=== PATIENT | female | born 1930 | race Caucasian/White ===

== ENCOUNTER 2017-09-07 13:25 | Observation (INO) | payer MEDICARE ==
[2017-09-07] VITALS (8 sets, daily range): BP systolic 131–194; BP diastolic 78–96; PULSE 90–120; RESP 15–20; TEMP 96.5–98.7; O2SAT 92–99
[~2017-09-07 13:25] MED LIST: ALBU.5I NEB; ALLO100T PO; IPRA0.02 NEB; LEVE500 PO; LORTA5 PO; NIFE1TAB86 PO; PRIM50TA PO
--- NOTE | 2017-09-07 14:59 | PD ---
HPI Chief Complaint: General Weakness Time Seen by Provider: 14:38 Travel History International Travel<30 days: No Contact w/Intl Traveler<30days: No Traveled to known affect area: No History of Present Illness HPI This is an 87-year-old female who presents to the department with weakness for 3 days and pain in her left leg, constant, severe, preventing her from walking. Patient reports that she fell 3 times 3 days ago, and she and her her left leg and left foot. She hasn't been able to walk much since. She's been mostly in bed and occasionally she gets up to use the bathroom. Her children have been leaving her water and bananas and that's when she's been eating and drinking. She says she feels very unsteady when she is on her feet. She did hit her head when she fell. PFSH Past Medical History Anemia: Yes (APLASTIC ANEMIA) Arthritis: Yes Asthma: No Atrial Fibrillation: Yes Blood Disorders: No Anxiety: No Depression: No Heart Rhythm Problems: Yes ("RACING HEART BEAT") Cancer: No Cardiovascular Problems: Yes High Cholesterol: No Chest Pain: No Congestive Heart Failure: No COPD: No Cerebrovascular Accident: Yes Diabetes: No Diminished Hearing: No Endocrine: No Gastrointestinal Disorders: Yes GERD: Yes Gout: Yes Genitourinary: Yes (KIDNEY DISEASE,UNABLE TO CATH PT.MARSH HITS OBSTRUCTION) Headaches: No Hiatal Hernia: No Hypertension: Yes Immune Disorder: No Implanted Vascular Access Dvce: No Kidney Stones: No Musculoskeletal: Yes (HX OF OSTEOMYELITIS) Neurologic: Yes Psychiatric: No Reproductive: No Respiratory: Yes (HX OF FREQUENT BRONCHITIS) Immunizations Current: Yes Migraines: No Renal Failure: Yes Seizures: Yes (32 years ago) Sickle Cell Disease: No Sleep Apnea: No Thyroid Disease: No Ulcer: Yes Menopausal: Yes Dilation and Curettage (D&C): Yes Past Surgical History Abdominal Surgery: Yes (APPY) Appendectomy: Yes Cardiac Surgery: No Cholecystectomy: Yes Ear Surgery: No Endocrine Surgery: No Eye Surgery: No Genitourinary Surgery: No Gynecologic Surgery: Yes (D&C) Neurologic Surgery: No Oral Surgery: No Thoracic Surgery: No Other Surgery: Yes Social History Alcohol Use: No Tobacco Use: No Substance Use: No Allergies-Medications (Allergen,Severity, Reaction): Coded Allergies: aspirin (Unverified Allergy, Severe, Anemia, 07/05/17) penicillin G (Unverified Allergy, Unknown, ALLERGY FROM A YOUNG AGE/ UNKNOWN REACTION, 07/05/17) Reported Meds & Prescriptions Reported Meds & Active Scripts Active Nifedipine Er (Nifedipine) 60 Mg Tabcr 60 Mg PO Q12 Atrovent Ud 0.02% (0.5 Mg/2.5 Ml) (Ipratropium [place]) 0.5 Mg/2.5 Ml Nebu 0.5 Mg NEB Q6HR NEB 30 Days use with albuterol nebule Proventil Conc Ud 0.5% (2.5 Mg/0.5 Ml) (Albuterol Sulfate) 2.5 Mg/0.5 Ml Inha 2.5 Mg NEB Q6HR NEB 30 Days use with atrovent Keppra (Levetriacetam) 500 Mg Tab 500 Mg PO Q12 Reported Hydrocodone/Acetaminophen 5 mg/325 mg 1 Tab 1 Tab PO Q6H PRN Allopurinol 100 Mg Tab 300 Mg PO DAILY Mysoline (Primidone) 50 Mg Tab 250 Mg PO DAILY Review of Systems Except as stated in HPI: all other systems reviewed are Neg Physical Exam Narrative GENERAL: Frail elderly female in no acute distress. SKIN: Pale, ecchymoses over the dorsal aspect of the left foot. HEAD: Atraumatic. Normocephalic. EYES: Pupils equal and round. No injection or drainage. Pale sclera. ENT: Moist mucous membranes NECK: Trachea midline. CARDIOVASCULAR: Regular rate and rhythm. No murmur appreciated. RESPIRATORY: Clear to auscultation. Breath sounds equal bilaterally. GASTROINTESTINAL: Abdomen soft, non-tender, nondistended. MUSCULOSKELETAL: Tender to palpation over the dorsal aspect of the left foot, over the lateral malleolus of the left ankle, over the proximal tibia and over the knee with pain with flexion of the left knee with no effusion. No pain with range of motion of the left or right hips. NEUROLOGICAL: Awake and alert. No obvious cranial nerve deficits. Moving all extremities. PSYCHIATRIC: Appropriate mood and affect; insight and judgment normal. Data Data Last Documented VS Vital Signs Date Time Temp Pulse Resp B/P (MAP) Pulse Ox O2 Delivery O2 Flow Rate FiO2 09/07/17 13:32 98.7 120 20 146/93 (110) Orders Orders Electrocardiogram (09/07/17 14:46) Complete Blood Count With Diff (09/07/17 14:46) Comprehensive Metabolic Panel (09/07/17 14:46) Prothrombin Time / Inr (Pt) (09/07/17 14:46) Act Partial Throm Time (Ptt) (09/07/17 14:46) Troponin I (09/07/17 14:46) Urinalysis - C+S If Indicated (09/07/17 14:46) Ct Brain W/O Iv Contrast(Rout) (09/07/17 14:46) Blood Glucose (09/07/17 14:46) Ecg Monitoring (09/07/17 14:46) Iv Access Insert/Monitor (09/07/17 14:46) Oximetry (09/07/17 14:46) Sodium Chloride 0.9% Flush (Ns Flush) (09/07/17 15:00) Creatine Kinase (Cpk) (09/07/17 14:46) Foot, Complete ([id number]) (09/07/17 ) Ankle, Complete ([id number]) (09/07/17 ) Tibia/Fibula (Ap/Lat) (09/07/17 ) Knee, Ltd (1 Or 2vws) (09/07/17 ) Tramadol (Ultram) (09/07/17 15:00) Cath For Specimen (09/07/17 14:46) MDM Medical Decision Making Medical Screen Exam Complete: Yes Emergency Medical Condition: Yes Differential Diagnosis Intracranial hemorrhage, metatarsal fracture, contusion, rhabdomyolysis, dehydration, anemia, urinary tract infection Narrative Course This is an 87-year-old female who presents to the emergency department with generalized weakness ever since she had multiple falls 3 days ago as well as pain in her left lower extremity. Labs will be obtained, urinalysis will be obtained, CT of the head and x-rays of the lower extremity will be obtained. Disposition will be made by oncoming provider. Vannessa Watson MD Sep 07, 2017 14:59
[2017-09-07] MEDS ORDERED: traMADol HCL 50 MG TAB PO ONE (15:00)
[2017-09-07] MEDS ORDERED: SODIUM CHLORIDE 0.9% FLUSH 5 ML FLUSH IV FLUSH PRN (15:00)
--- NOTE | 2017-09-07 15:32 | RADRPT ---
EXAM DATE/TIME: 09/07/2017 14:56 [facility] COMPARISON: No previous studies available for comparison. INDICATIONS : FELL TUESDAY. MEDICAL HISTORY : None. SURGICAL HISTORY : None. ENCOUNTER: Initial ACUITY: 3 days PAIN SCORE: 10/10 LOCATION: Left lateral side of foot FINDINGS: 3 views of the left foot show considerable overlap involving the phalanges secondary to flexion and e xtension. Concern for dislocation of the first metatarsal phalangeal joint. Diffuse osteopenia. No fr actures observed. Osteoarthritis involving the first metatarsophalangeal joint. Atherosclerotic calci fications noted. CONCLUSION: 1. Limited study of the phalanges secondary to overlap. 2. Concern for possible dislocation at the first metatarsophalangeal joint. The concern is the proxim al phalanx is along the dorsum of the metatarsal. Gonzalo Arias Jr., MD on September 07, 2017 at 15:27 Board Certified Radiologist. This report was verified electronically.
--- NOTE | 2017-09-07 15:33 | RADRPT ---
EXAM DATE/TIME: 09/07/2017 14:56 [facility] COMPARISON: No previous studies available for comparison. INDICATIONS : Fell 3 times on tuesday. MEDICAL HISTORY : None. SURGICAL HISTORY : None. ENCOUNTER: Initial ACUITY: 3 days PAIN SCORE: 10/10 LOCATION: Left lateral side of foot FINDINGS: Three view exam was performed of the left ankle. The bony structures are in normal alignment. No ev idence of fracture, dislocation, or soft tissue swelling. The ankle mortise is intact. No radiopaqu e foreign bodies are seen. Bony mineralization is reduced. CONCLUSION: Osteopenia. No acute abnormality. Gonzalo Arias Jr., MD on September 07, 2017 at 15:30 Board Certified Radiologist. This report was verified electronically.
--- NOTE | 2017-09-07 15:33 | RADRPT ---
EXAM DATE/TIME: 09/07/2017 14:56 [facility] COMPARISON: No previous studies available for comparison. INDICATIONS : fell tuesday. MEDICAL HISTORY : None. SURGICAL HISTORY : None. ENCOUNTER: Initial ACUITY: 3 days PAIN SCORE: 10/10 LOCATION: Left distal tib fib FINDINGS: Two view examination of the left tibia demonstrates no evidence of fracture or dislocation. Bony min eralization is reduced. The soft tissue structures are intact. CONCLUSION: 1. Osteopenia. 2. No acute abnormality. Gonzalo Arias Jr., MD on September 07, 2017 at 15:31 Board Certified Radiologist. This report was verified electronically.
--- NOTE | 2017-09-07 15:34 | RADRPT ---
EXAM DATE/TIME: 09/07/2017 14:56 [facility] COMPARISON: No previous studies available for comparison. INDICATIONS : Fell tuesday MEDICAL HISTORY : None. SURGICAL HISTORY : None. ENCOUNTER: Initial ACUITY: 3 days PAIN SCORE: 3/10 LOCATION: Left knee FINDINGS: Two view examination of the left knee demonstrates no evidence of fracture or dislocation. Bony mine ralization is reduced. The suprapatellar soft tissues have a normal configuration. CONCLUSION: 1. No acute abnormality. 2. Osteopenia. Gonzalo Arias Jr., MD on September 07, 2017 at 15:32 Board Certified Radiologist. This report was verified electronically.
--- NOTE | 2017-09-07 15:56 | RADRPT ---
EXAM DATE/TIME: 09/07/2017 15:14 [facility] COMPARISON: CT BRAIN W/O CONTRAST, April 20, 2015, 14:41. INDICATIONS : Altered mental status. Fall. RADIATION DOSE: 61.27 CTDIvol (mGy) ; Patient motion MEDICAL HISTORY : Cerebrovascular disease. Hypertension. SURGICAL HISTORY : None. ENCOUNTER: Initial ACUITY: 1 day PAIN SCALE: 0/10 LOCATION: cranial TECHNIQUE: Multiple contiguous axial images were obtained of the head. Using automated exposure control and adj ustment of the mA and/or kV according to patient size, radiation dose was kept as low as reasonably a chievable to obtain optimal diagnostic quality images. DICOM format image data is available electro nically for review and comparison. FINDINGS: CEREBRUM: The ventricles are normal for age. Periventricular areas of diminished attenuation are characteristi c of moderately severe small vessel ischemic demyelination. No evidence of midline shift, mass lesion , hemorrhage or acute infarction. No extra-axial fluid collections are seen. POSTERIOR FOSSA: The cerebellum and brainstem are intact. The 4th ventricle is midline. The cerebellopontine angle i s unremarkable. EXTRACRANIAL: The visualized portion of the orbits is intact. SKULL: The calvaria is intact. No evidence of skull fracture. CONCLUSION: 1. 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 2. Nothing acute. Gaurav Arevalo MD on September 07, 2017 at 15:53 Board Certified Radiologist. This report was verified electronically.
[2017-09-07 15:57] LABS: BLOOD, URINE MOD (NEG); GLUCOSE,URINE NEG (NEG); KETONE, URINE 15 mg/dL (NEG); NITRITE,URINE NEG (NEG)
[2017-09-07 16:06] LABS: CHLORIDE 108 MEQ/L (98-107); POTASSIUM 5.2 MEQ/L (3.5-5.1); SODIUM (NA) 139 MEQ/L (136-145)
[2017-09-07 16:09] LABS: APTT (PATIENT) 25.8 SEC (24.3-30.1); PROTHROMBIN TIME - PATIENT 11.2 SEC (9.8-11.6)
[2017-09-07 16:10] LABS: ANION GAP 15 MEQ/L (5-15); BICARBONATE 16.3 MEQ/L (21.0-32.0); BLOOD UREA NITROGEN 18 MG/DL (7-18)
[2017-09-07 16:11] LABS: METHOD OF COLLECTION CATH; URINE COLOR YELLOW (YELLW/STRAW)
[2017-09-07 16:12] LABS: RBC, URINE 0-3 /hpf (0-3); SQUAMOUS EPITHELIAL CELL URINE 0-5 /hpf (0-5)
[2017-09-07 16:13] LABS: ALT (GPT) 15 U/L (10-53); AST (GOT) 21 U/L (15-37); GLOMERULAR FILTRATION RATE 52 ML/MIN (>89)
[2017-09-07 16:13] LABS: COMMENT (UR) CULT NOT INDICATED; CULTURE IF INDICATED CULT NOT INDICATED
[2017-09-07 16:15] LABS: TOTAL BILIRUBIN ADULT 0.4 MG/DL (0.2-1.0)
[2017-09-07 16:16] LABS: ALKALINE PHOSPHATASE 111 U/L (45-117)
[2017-09-07 16:19] LABS: CREATINE KINASE 49 U/L (26-192)
[2017-09-07 16:24] LABS: AUTOMATED NEUTROPHIL # 5.1 TH/MM3 (1.8-7.7); BASOPHIL % 0.1 % (0.0-2.0); EOSINOPHIL # 0.4 TH/MM3 (0-0.4); EOSINOPHIL % 6.5 % (0.0-4.0); HEMATOCRIT 30.4 % (35.0-46.0); HEMO FLAGS DIFF FINAL; LYMPH % 12.9 % (9.0-44.0); LYMPHOCYTE # 0.9 TH/MM3 (1.0-4.8); MEAN CORPUSCULAR HEMOGLOBIN 34.5 PG (27.0-34.0); MEAN CORPUSCULAR HGB CONC 32.8 % (32.0-36.0); NEUT % 73.5 % (16.0-70.0); PLATELET COUNT 220 TH/MM3 (150-450); RED BLOOD COUNT 2.89 MIL/MM3 (4.00-5.30); RED CELL DISTRIBUTION WIDTH 15.7 % (11.6-17.2); WHITE BLOOD COUNT 6.9 TH/MM3 (4.0-11.0)
--- NOTE | 2017-09-07 18:08 | PD ---
Physical Exam Narrative Patient was seen by ED physician and signed out to me. Data Data Last Documented VS Vital Signs Date Time Temp Pulse Resp B/P (MAP) Pulse Ox O2 Delivery O2 Flow Rate FiO2 09/07/17 19:08 16 09/07/17 19:00 90 97 09/07/17 19:00 168/85 (112) Room Air 09/07/17 13:32 98.7 Orders Orders Electrocardiogram (09/07/17 14:46) Complete Blood Count With Diff (09/07/17 14:46) Comprehensive Metabolic Panel (09/07/17 14:46) Prothrombin Time / Inr (Pt) (09/07/17 14:46) Act Partial Throm Time (Ptt) (09/07/17 14:46) Troponin I (09/07/17 14:46) Urinalysis - C+S If Indicated (09/07/17 14:46) Ct Brain W/O Iv Contrast(Rout) (09/07/17 14:46) Blood Glucose (09/07/17 14:46) Ecg Monitoring (09/07/17 14:46) Iv Access Insert/Monitor (09/07/17 14:46) Oximetry (09/07/17 14:46) Sodium Chloride 0.9% Flush (Ns Flush) (09/07/17 15:00) Creatine Kinase (Cpk) (09/07/17 14:46) Foot, Complete (Fvm5mhs) (09/07/17 ) Ankle, Complete (Cnq7nhm) (09/07/17 ) Tibia/Fibula (Ap/Lat) (09/07/17 ) Knee, Ltd (1 Or 2vws) (09/07/17 ) Tramadol (Ultram) (09/07/17 15:00) Cath For Specimen (09/07/17 14:46) Lidocaine 1% Inj (50 Ml) (Xylocaine 1% I (09/07/17 18:45) Admit Order (Ed Use Only) (09/07/17 19:09) Labs Laboratory Tests Test 09/07/17 15:30 09/07/17 15:42 White Blood Count 6.9 TH/MM3 Red Blood Count 2.89 MIL/MM3 Hemoglobin 10.0 GM/DL Hematocrit 30.4 % Mean Corpuscular Volume 105.0 FL Mean Corpuscular Hemoglobin 34.5 PG Mean Corpuscular Hemoglobin Concent 32.8 % Red Cell Distribution Width 15.7 % Platelet Count 220 TH/MM3 Mean Platelet Volume 8.3 FL Neutrophils (%) (Auto) 73.5 % Lymphocytes (%) (Auto) 12.9 % Monocytes (%) (Auto) 7.0 % Eosinophils (%) (Auto) 6.5 % Basophils (%) (Auto) 0.1 % Neutrophils # (Auto) 5.1 TH/MM3 Lymphocytes # (Auto) 0.9 TH/MM3 Monocytes # (Auto) 0.5 TH/MM3 Eosinophils # (Auto) 0.4 TH/MM3 Basophils # (Auto) 0.0 TH/MM3 CBC Comment DIFF FINAL Differential Comment Prothrombin Time 11.2 SEC Prothromb Time International Ratio 1.0 RATIO Activated Partial Thromboplast Time 25.8 SEC Blood Urea Nitrogen 18 MG/DL Creatinine 1.00 MG/DL Random Glucose 71 MG/DL Total Protein 7.0 GM/DL Albumin 3.3 GM/DL Calcium Level 10.3 MG/DL Alkaline Phosphatase 111 U/L Aspartate Amino Transf (AST/SGOT) 21 U/L Alanine Aminotransferase (ALT/SGPT) 15 U/L Total Bilirubin 0.4 MG/DL Sodium Level 139 MEQ/L Potassium Level 5.2 MEQ/L Chloride Level 108 MEQ/L Carbon Dioxide Level 16.3 MEQ/L Anion Gap 15 MEQ/L Estimat Glomerular Filtration Rate 52 ML/MIN Total Creatine Kinase 49 U/L Troponin I LESS THAN 0.02 NG/ML Urine Collection Type CATH Urine Color YELLOW Urine Turbidity SLIGHT Urine pH 6.0 Urine Specific [place] 1.015 Urine Protein 100 mg/dL Urine Glucose (UA) NEG mg/dL Urine Ketones 15 mg/dL Urine Occult Blood MOD Urine Nitrite NEG Urine Bilirubin NEG Urine Leukocyte Esterase TRACE Urine RBC 0-3 /hpf Urine WBC 3-5 /hpf Urine Squamous Epithelial Cells 0-5 /hpf Urine Amorphous Sediment FEW Microscopic Urinalysis Comment CULT NOT INDICATED MDM Supervised Visit with LUTHER: No Interpretation(s) Last Impressions Head CT 09/07/17 1446 Signed Impressions: Service Date/Time: Thursday, September 07, 2017 15:14 - CONCLUSION: 1. 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 2. Nothing acute. Gaurav Arevalo MD Tibia/Fibula X-Ray 09/07/17 0000 Signed Impressions: Service Date/Time: Thursday, September 07, 2017 14:56 - CONCLUSION: 1. Osteopenia. 2. No acute abnormality. Gonzalo Arias Jr., MD Knee X-Ray 09/07/17 0000 Signed Impressions: Service Date/Time: Thursday, September 07, 2017 14:56 - CONCLUSION: 1. No acute abnormality. 2. Osteopenia. Gonzalo Arias Jr., MD Foot X-Ray 09/07/17 0000 Signed Impressions: Service Date/Time: Thursday, September 07, 2017 14:56 - CONCLUSION: 1. Limited study of the phalanges secondary to overlap. 2. Concern for possible dislocation at the first metatarsophalangeal joint. The concern is the proximal phalanx is along the dorsum of the metatarsal. Gonzalo Arias Jr., MD Ankle X-Ray 09/07/17 0000 Signed Impressions: Service Date/Time: Thursday, September 07, 2017 14:56 - CONCLUSION: Osteopenia. No acute abnormality. Gonzalo Arias Jr., MD 1806 p.m. CBC with WBC 6.9. Hemoglobin 10.0 hematocrit 30.4. MCV 105.0. 73 neutrophil. Potassium 5.2. Chloride 108. Bicarbonate exceeding 0.3. Glucose 71. Calcium 10.3. Cardiac enzymes are normal. UA is negative. Narrative Course Unable to reduce the left great toe dislocation. Podiatry consultation obtained. Acute versus chronic dislocation left great toe. Procedures Procedure Narrative 1% lidocaine digital block left great toe. Traction countertraction with attempts to reduce left great toe without much success. Podiatry consultation initiated. Diagnosis Primary Impression: Generalized weakness Additional Impressions: Dislocation of great toe, left, closed Qualified Codes: S93.105A - Unspecified dislocation of left toe(s), initial encounter Multiple contusions Chronic kidney disease, stage 3 Scripts Unable to Obtain Active Prescriptions or Reported Meds Adrian Earl MD Sep 07, 2017 18:08
[2017-09-07] MEDS ORDERED: LIDOCAINE HCL 1% 50 ML VIAL INFIL ONE (18:45)
--- NOTE | 2017-09-07 20:31 | RADRPT ---
EXAM DATE/TIME: 09/07/2017 20:02 [facility] COMPARISON: FOOT RIGHT COMPLETE ([id number]), January 30, 2015, 18:40. FOOT RIGHT COMPLETE ([id number]), February 19, 2015, 16:10. FOOT LEFT COMPLETE ([id number]), September 07, 2017, 14:56. INDICATIONS : Left foot, great toe pain after fall. MEDICAL HISTORY : None. SURGICAL HISTORY : None. ENCOUNTER: Initial ACUITY: 1 day PAIN SCORE: 10/10 LOCATION: Left foot, great toe. FINDINGS: Bony structures are osteoporotic. Proximal phalanx of the great toe is somewhat rotated dorsally on t he metatarsal head could represent a chronic subluxation. Clinical correlation recommended. CONCLUSION: Osteoporosis. Abnormal first metatarsophalangeal joint as described which could represent a chronic s ubluxation and clinical correlation is recommended Eyal Mendoza MD on September 07, 2017 at 20:27 Board Certified Radiologist. This report was verified electronically.
[2017-09-07] MEDS ORDERED: ACETAMINOPHEN 325 MG TAB PO PRN (22:00)
[2017-09-07] MEDS ORDERED: cloNIDine HCL 0.1 MG TAB PO PRN (22:00)
[2017-09-07] MEDS ORDERED: SODIUM CHLORIDE 0.9% FLUSH 10 ML FLUSH IV FLUSH PRN (22:00)
[2017-09-07] MEDS ORDERED: ONDANSETRON HCL 4 MG/2 ML VIAL IVP PRN (22:00)
[2017-09-07] MEDS ORDERED: NALOXONE HCL 0.4 MG/ML AMP IV PUSH PRN (22:00)
[2017-09-07] MEDS: DEXT 5%-NACL 0.45% 1000 ML INJ 1,000 ML IV SCH (23:56)
[2017-09-08 03:55] VITALS: BP 190/76; PULSE 94; RESP 19; TEMP 96.2; O2SAT 97
[2017-09-08] MEDS: NIFEdipine 60 MG SUSTAINED RELEASE TAB PO SCH ×2 (04:48→08:45)
[2017-09-08 05:52] LABS: AUTOMATED NEUTROPHIL # 4.8 TH/MM3 (1.8-7.7); BASOPHIL % 0.2 % (0.0-2.0); EOSINOPHIL # 0.6 TH/MM3 (0-0.4); EOSINOPHIL % 9.2 % (0.0-4.0); HEMATOCRIT 27.9 % (35.0-46.0); HEMO FLAGS DIFF FINAL; LYMPH % 14.8 % (9.0-44.0); MEAN CELL VOLUME 103.4 FL (80.0-100.0); MEAN CORPUSCULAR HEMOGLOBIN 33.2 PG (27.0-34.0); MEAN CORPUSCULAR HGB CONC 32.2 % (32.0-36.0); MONO % 9.4 % (0.0-8.0); NEUT % 66.4 % (16.0-70.0); PLATELET COUNT 216 TH/MM3 (150-450); RED CELL DISTRIBUTION WIDTH 15.5 % (11.6-17.2); WHITE BLOOD COUNT 7.1 TH/MM3 (4.0-11.0)
[2017-09-08 06:15] LABS: ALKALINE PHOSPHATASE 98 U/L (45-117); ALT (GPT) 13 U/L (10-53); ANION GAP 14 MEQ/L (5-15); AST (GOT) 18 U/L (15-37); BICARBONATE 18.1 MEQ/L (21.0-32.0); BLOOD UREA NITROGEN 17 MG/DL (7-18); CHLORIDE 107 MEQ/L (98-107); GLOMERULAR FILTRATION RATE 56 ML/MIN (>89); POTASSIUM 4.1 MEQ/L (3.5-5.1); SODIUM (NA) 139 MEQ/L (136-145); TOTAL BILIRUBIN ADULT 0.3 MG/DL (0.2-1.0)
[2017-09-08 07:50] VITALS: BP 118/73; PULSE 102; RESP 20; TEMP 96; O2SAT 98
[2017-09-08] MEDS: PRIMIDONE 250 MG TAB PO SCH (08:45)
[2017-09-08] MEDS: ALLOPURINOL 300 MG TAB PO SCH (08:45)
[2017-09-08] MEDS: SODIUM CHLORIDE 0.9% FLUSH 10 ML FLUSH IV FLUSH SCH ×2 (08:45→21:01)
[2017-09-08] MEDS: levETIRAcetam 500 MG TAB PO SCH ×2 (08:45→21:00)
[2017-09-08] MEDS: DEXT 5%-NACL 0.45% 1000 ML INJ 1,000 ML IV SCH ×2 (09:55→23:04)
--- NOTE | 2017-09-08 11:32 | EKG ---
Date Performed: 09/07/2017 Time Performed: 15:53:32 PTAGE: 87 years EKG: SINUS TACHYCARDIA POSSIBLE RIGHT VENTRICULAR CONDUCTION DELAY ABNORMAL RHYTHM ECG Compared to prior tracing no significant change PREVIOUS TRACING DOCTOR: Lalo Aden Interpretating Date/Time 09/08/2017 11:28:45
[2017-09-08 12:00] VITALS: BP 127/61; PULSE 113; RESP 14; TEMP 97.3
[2017-09-08] MEDS: ATENOLOL 25 MG TAB PO SCH (14:21)
--- NOTE | 2017-09-08 15:29 | MH ---
cc: PAUL ODONNELL DATE OF ADMISSION: 09/07/2017 ADMISSION DIAGNOSIS Generalized weakness, left big toe dislocation. HISTORY OF PRESENT ILLNESS The patient is a very pleasant 87-year-old female who was brought to the emergency room for weakness for the last 3 days. She states that normally she uses a walker to ambulate around the house and with that she is pretty stable and able to function. However, on Tuesday in the course of 1 day she had three falls. The first one was while bringing something in from the kitchen to the living room. She had her walker and some food in her hand. She said suddenly she felt that maybe her leg gave out and she was down on the ground. She did not lose any consciousness with any of this. She does say that she has problems with her leg, has had problems with her knees in the past. So she continued with her daily activities, then again when she tried to get up from the commode she said she lost her balance again, became unsteady and fell against the shower. Her other fall was actually, she says she had put on her gown and it was of satiny type material and she simply slid off her chair. She has never had a series of falls like this in 1 day at anytime. She says that these falls took their toll, she was sore all over. She does have baseline osteoarthritis and her left foot was also hurting a great deal. Secondary to this she spent the next couple of days pretty much bedridden, not being able to get up much to get food or water. She has been very unsteady since then and secondary to inability to walk or care for her, she was brought to the emergency room by her family. PAST MEDICAL HISTORY Past medical history is significant for: 1. Gout. 2. Aplastic anemia. 3. CKD III. 4. She has had prior intracerebral hemorrhage. 5. Seizure disorder. 6. Paroxysmal atrial fibrillation. PAST SURGICAL HISTORY 1. Appendectomy. 2. Cholecystectomy. ALLERGIES ASIRIN, PENICILLIN, CARLO INHIBITORS AND ARBs INCREASE HER POTASSIUM. MEDICATIONS The patient could not recall her medications, so I had to look in the [facility] EHR for these: 1. She is on nifedipine ER 60 mg daily. 2. She is on Keppra 500 mg twice a day. 3. Atenolol 25 mg daily. 4. Lortab 5/325 every 6 hours. 5. Allopurinol 300 mg daily. 6. Primidone 250 mg daily. HABITS She does not consume alcohol or smoke. SOCIAL HISTORY She is for 3 years now, her from Alzheimer's. She has children in the vicinity but still lives alone. Her family bring her meals that are simple to prepare. She uses a walker at home. She wants to try to maintain her independence and return to her home if she is able to. REVIEW OF SYSTEMS She denies any chest pain, shortness of breath. No palpitations. She has no abdominal pain. She does state that she has been having some soft stools lately. No dysuria or urgency. She said there was a period there where she was having trouble urinating, but she feels that is resolved now. She has generalized joint pain and weakness in her hands. She has pain in her left foot as stated. PHYSICAL EXAMINATION VITAL SIGNS: Temperature is 96, pulse is 102, respirations 20, blood pressure is 118/73, pulse ox is 98%. GENERAL: She is sitting up in the hospital room, when I come in to see her she has a nice full lunch in front of her which she appears to be enjoying. HEENT: She is normocephalic, atraumatic. EOM is intact. She has a moist oral mucosa. NECK: Her neck is supple. LUNGS: Her lungs are clear to auscultation bilaterally. No rhonchi, rales or wheezes. She does sound a tiny bit tachycardic. ABDOMEN: Her abdomen has good bowel sounds in all four quadrants. No rebound or guarding. EXTREMITIES: Show no clubbing, cyanosis or edema. She does have very large ecchymosis on the dorsal aspect of her left foot and swelling of her big toe. The foot is tender to palpation. She is very resistant to having it touched or examined. She does look like she has evidence of amputation on her right foot. She does have an area of ecchymosis on her left hip as well. LABORATORY DATA Lab work that was done when she came in showed a white count of 6.9, hemoglobin of 10, hematocrit of 30.4, platelet count of 220, sodium was 139, potassium 5.2, BUN was 18, creatinine was 1, random glucose was 71, albumin was 3.3. PT was 11.2, INR was 1, APTT was 25.8. Urine was negative for infection. She did have some protein and occult blood. IMAGING STUDIES She had multiple imaging studies done. The tibia and fibula showed osteopenia, no acute abnormality. X-ray of the knee showed no acute abnormality, osteopenia again. X-ray of the foot, there was concern for dislocation of the first metatarsal, this is the left foot, diffuse osteopenia, no fractures. X-ray of the ankle again no evidence of fracture dislocation. CT scan of the head that was done because she hit her head with one of her falls in the bathroom, stable chronic changes with moderately severe periventricular small vessel ischemic demyelinzation, nothing acute. Repeat x-ray of the foot showed abnormal first metaphalangeal joint which could represent a chronic subluxation, they recommended a clinical correlation. ASSESSMENT/PLAN Very pleasant 87-year-old female who presented to the emergency room with generalized weakness after being unable to care for herself, after fall injuring her foot. At this point the emergency room doctor tried to reduce her left great toe in effort to improve her clinical status and resolve the dislocation however, apparently he was unsuccessful and has asked for podiatry consult, which I concur with. The patient has been admitted for podiatry evaluation. Will also have PT see her. A lot of her lab work reviewing her chart is very close to baseline. We did have some trouble that she did not know her medication, making sure we got her back on her home medication regimen. At this point once she seen by podiatry and we are able to get her possibly somewhat weightbearing, I plan to have physical therapy see her and at this point have her go to rehab for a day or two for strengthening. She is very agreeable with this plan. Further recommendations as the case develops. We will continue the rest of her medications for her blood pressure, gout, etc. MD JENN Fernandes/DOMNIGO /1:53 PM /2:56 PM
[2017-09-08] MEDS: ACETAMINOPHEN/HYDROcodone 325 MG/5 MG TAB PO PRN (15:45)
[2017-09-08 16:00] VITALS: BP 120/62; PULSE 81; RESP 14; TEMP 96.3; O2SAT 98
--- NOTE | 2017-09-08 18:20 | PD.CONS ---
History of Present Illness Service Podiatry Consult Requested By Reason for Consult L 1st MTP joint dislocation Primary Care Physician Norman Moctezuma D.O. Diagnoses: History of Present Illness Patient relates a fall yesterday where she hurt her foot and hit her head. She says the L great toe is very painful when it is touched. Past Family Social History Allergies: Coded Allergies: aspirin (Unverified Allergy, Severe, Anemia, 07/05/17) penicillin G (Unverified Allergy, Unknown, ALLERGY FROM A YOUNG AGE/ UNKNOWN REACTION, 07/05/17) Past Medical History Gout. Aplastic anemia. CKD III. Prior intracerebral hemorrhage. Seizure disorder. Paroxysmal atrial fibrillation. Past Surgical History 1. Appendectomy. 2. Cholecystectomy. Reported Medications 1. She is on nifedipine ER 60 mg daily. 2. She is on Keppra 500 mg twice a day. 3. Atenolol 25 mg daily. 4. Lortab 5/325 every 6 hours. 5. Allopurinol 300 mg daily. 6. Primidone 250 mg daily. Active Ordered Medications Current Medications Medications (Trade) Dose Ordered Sig/Oly Route Start Time Stop Time Status Last Admin (NS Flush) 2 ml UNSCH PRN IV FLUSH 09/07/17 22:00 (NS Flush) 2 ml BID IV FLUSH 09/08/17 09:00 (Tylenol) 650 mg Q4H PRN PO 09/07/17 22:00 (Zofran Inj) 4 mg Q6H PRN IVP 09/07/17 22:00 (Narcan Inj) 0.4 mg UNSCH PRN IV PUSH 09/07/17 22:00 ([place] 5-325 Mg) 1 tab Q6H PRN PO 09/07/17 22:00 09/08/17 15:45 Dextrose/Sodium Chloride 1,000 ml @ 84 mls/hr [id number] IV 09/07/17 22:00 09/07/17 23:56 (Keppra) 500 mg Q12HR PO 09/08/17 09:00 09/08/17 08:45 (Zyloprim) 300 mg DAILY PO 09/08/17 09:00 09/08/17 08:45 (Catapres) 0.1 mg Q6H PRN PO 09/07/17 22:00 09/07/17 23:56 (Mysoline) 250 mg DAILY PO 09/08/17 09:00 09/08/17 08:45 (Procardia Xl) 60 mg DAILY PO 09/08/17 04:15 09/08/17 08:45 (Tenormin) 25 mg DAILY PO 09/08/17 14:00 09/08/17 14:21 Social History denies Physical Exam Vital Signs Vital Signs Date Time Temp Pulse Resp B/P (MAP) Pulse Ox O2 Delivery O2 Flow Rate FiO2 09/08/17 12:00 97.3 113 14 127/61 (83) 09/08/17 07:50 96.0 102 20 118/73 (88) 98 09/08/17 03:55 96.2 94 19 190/76 (114) 97 09/07/17 23:40 96.5 105 18 190/82 (118) 98 09/07/17 21:39 96.6 110 16 188/78 (114) 99 09/07/17 21:06 102 16 152/96 (114) 98 09/07/17 19:08 16 09/07/17 19:00 90 16 97 09/07/17 19:00 90 16 168/85 (112) 97 Room Air 09/07/17 18:47 106 15 174/87 (116) 98 Room Air Physical Exam Diffuse ecchymosis to medial forefoot. Diffuse pain L 1st MTP joint Palpable pulses. Sensation intact. Brisk capillary refill to digits Laboratory Laboratory Tests Test 09/08/17 04:57 White Blood Count 7.1 Red Blood Count 2.70 Hemoglobin 9.0 Hematocrit 27.9 Mean Corpuscular Volume 103.4 Mean Corpuscular Hemoglobin 33.2 Mean Corpuscular Hemoglobin Concent 32.2 Red Cell Distribution Width 15.5 Platelet Count 216 Mean Platelet Volume 8.1 Neutrophils (%) (Auto) 66.4 Lymphocytes (%) (Auto) 14.8 Monocytes (%) (Auto) 9.4 Eosinophils (%) (Auto) 9.2 Basophils (%) (Auto) 0.2 Neutrophils # (Auto) 4.8 Lymphocytes # (Auto) 1.0 Monocytes # (Auto) 0.7 Eosinophils # (Auto) 0.6 Basophils # (Auto) 0.0 CBC Comment DIFF FINAL Differential Comment Blood Urea Nitrogen 17 Creatinine 0.95 Random Glucose 92 Total Protein 6.1 Albumin 2.7 Calcium Level 9.5 Alkaline Phosphatase 98 Aspartate Amino Transf (AST/SGOT) 18 Alanine Aminotransferase (ALT/SGPT) 13 Total Bilirubin 0.3 Sodium Level 139 Potassium Level 4.1 Chloride Level 107 Carbon Dioxide Level 18.1 Anion Gap 14 Estimat Glomerular Filtration Rate 56 Thyroid Stimulating Hormone 3rd Gen 2.360 Result Diagram: 09/08/177 09/08/17 0457 Imaging Last 72 hours Impressions Toe X-Ray 09/07/17 1952 Signed Impressions: Service Date/Time: Thursday, September 07, 2017 20:02 - CONCLUSION: Osteoporosis. Abnormal first metatarsophalangeal joint as described which could represent a chronic subluxation and clinical correlation is recommended Eyal Mendoza MD Head CT 09/07/17 1446 Signed Impressions: Service Date/Time: Thursday, September 07, 2017 15:14 - CONCLUSION: 1. 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 2. Nothing acute. Gaurav Arevalo MD Tibia/Fibula X-Ray 09/07/17 0000 Signed Impressions: Service Date/Time: Thursday, September 07, 2017 14:56 - CONCLUSION: 1. Osteopenia. 2. No acute abnormality. Gonzalo Arias Jr., MD Knee X-Ray 09/07/17 0000 Signed Impressions: Service Date/Time: Thursday, September 07, 2017 14:56 - CONCLUSION: 1. No acute abnormality. 2. Osteopenia. Gonzalo Arias Jr., MD Foot X-Ray 09/07/17 0000 Signed Impressions: Service Date/Time: Thursday, September 07, 2017 14:56 - CONCLUSION: 1. Limited study of the phalanges secondary to overlap. 2. Concern for possible dislocation at the first metatarsophalangeal joint. The concern is the proximal phalanx is along the dorsum of the metatarsal. Gonzalo Arias Jr., MD Ankle X-Ray 09/07/17 0000 Signed Impressions: Service Date/Time: Thursday, September 07, 2017 14:56 - CONCLUSION: Osteopenia. No acute abnormality. Gonzalo Arias Jr., MD Assessment and Plan Assessment and Plan Left 1st MTP joint dislocation Attempted relocation of L 1st MTP joint under local anesthesia with 20mL 2% lidocaine plain Ordered CT scan L foot to assess joint and determine if open reduction required in OR Surgical shoe ordered Monse Ashford DPM Sep 08, 2017 18:20
[2017-09-08] MEDS ORDERED: LIDOCAINE HCL 2% 20 ML VIAL INFIL ONE (18:30)
[2017-09-08] MEDS ORDERED: LIDOCAINE HCL 2% 50 ML VIAL INFIL ONE (18:45)
[2017-09-08 19:54] VITALS: PULSE 76
[2017-09-08 20:00] VITALS: BP 139/76; PULSE 86; RESP 18; TEMP 96.2; O2SAT 97
--- NOTE | 2017-09-08 21:36 | RADRPT ---
EXAM DATE/TIME: 09/08/2017 20:35 [facility] COMPARISON: TOE LEFT 1ST DIGIT (MIN 2VWS), September 07, 2017, 20:02. INDICATIONS : Injury to left big toe. CT recomended from x-ray report. RADIATION DOSE: 6.10 CTDIvol (mGy) MEDICAL HISTORY : Hypertension. Chronic obstructive pulmonary disease. Gout SURGICAL HISTORY : ENCOUNTER: Initial ACUITY: 2 days PAIN SCALE: 9/10 LOCATION: Left foot TECHNIQUE: Volumetric scanning of the foot was performed. Using automated exposure control and adjustment of th e mA and/or kV according to patient size, radiation dose was kept as low as reasonably achievable to obtain optimal diagnostic quality images. DICOM format image data is available electronically for re view and comparison. FINDINGS: Bony structures are osteoporotic. There is degenerative change at the first metatarsophalangeal joint and partial dorsal subluxation of the proximal phalanx which is probably a chronic process. There is no acute bony injury. There is a small droplet of air in soft tissues betw een the first and second metatarsal heads without bony abnormality or soft tissue abnormality. Etiolo gy is nonspecific could this represent a penetrating injury. CONCLUSION: Osteoporosis. Degenerative changes first metatarsal phalangeal joint with probable chronic subluxatio n dorsally of the proximal phalanx at the metatarsophalangeal joint. No acute bony injury identified. Droplet of air in the soft tissues between the firs t and second metatarsal heads of indeterminate origin. Eyal Mendoza MD on September 08, 2017 at 21:30 Board Certified Radiologist. This report was verified electronically.
[2017-09-09] VITALS: BP 143/74; PULSE 78; RESP 20; TEMP 96.1; O2SAT 98
[2017-09-09] MEDS: ACETAMINOPHEN/HYDROcodone 325 MG/5 MG TAB PO PRN (02:21)
[2017-09-09 04:00] VITALS: BP 136/74; PULSE 77; RESP 20; TEMP 96.6; O2SAT 98
[2017-09-09] MEDS: SODIUM CHLORIDE 0.9% FLUSH 10 ML FLUSH IV FLUSH SCH (07:34)
[2017-09-09 08:00] VITALS: BP 148/72; PULSE 76; RESP 18; TEMP 97.1; O2SAT 97
[2017-09-09] MEDS: levETIRAcetam 500 MG TAB PO SCH (08:14)
[2017-09-09] MEDS: NIFEdipine 60 MG SUSTAINED RELEASE TAB PO SCH (08:14)
[2017-09-09] MEDS: PRIMIDONE 250 MG TAB PO SCH (08:14)
[2017-09-09] MEDS: ALLOPURINOL 300 MG TAB PO SCH (08:14)
[2017-09-09] MEDS: ATENOLOL 25 MG TAB PO SCH (08:14)
--- NOTE | 2017-09-09 11:34 | HHI.PR ---
Subjective Remarks Eating well, foot less painful. Objective Vitals Vital Signs Date Time Temp Pulse Resp B/P (MAP) Pulse Ox O2 Delivery O2 Flow Rate FiO2 09/09/17 08:00 97.1 76 18 148/72 (97) 97 09/09/17 04:00 96.6 77 20 136/74 (94) 98 09/09/17 00:00 96.1 78 20 143/74 (97) 98 09/08/17 20:00 96.2 86 18 139/76 (97) 97 09/08/17 19:54 76 09/08/17 16:00 96.3 81 14 120/62 (81) 98 09/08/17 12:00 97.3 113 14 127/61 (83) Result Diagram: 09/08/1745609/08/17456 Imaging Last Impressions Lower Extremity CT 09/08/17 0000 Signed Impressions: Service Date/Time: August 20:35 - CONCLUSION: Osteoporosis. Degenerative changes first metatarsal phalangeal joint with probable chronic subluxation dorsally of the proximal phalanx at the metatarsophalangeal joint. No acute bony injury identified. Droplet of air in the soft tissues between the first and second metatarsal heads of indeterminate origin. Eyal Mendoza MD Toe X-Ray 09/07/171951 Signed Impressions: Service Date/Time: Thursday, September 07, 2017 20:02 - CONCLUSION: Osteoporosis. Abnormal first metatarsophalangeal joint as described which could represent a chronic subluxation and clinical correlation is recommended Eyal Mendoza MD Head CT 09/07/17 1446 Signed Impressions: Service Date/Time: Thursday, September 07, 2017 15:14 - CONCLUSION: 1. 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 2. Nothing acute. Gaurav Arevalo MD Tibia/Fibula X-Ray 09/07/17 0000 Signed Impressions: Service Date/Time: Thursday, September 07, 2017 14:56 - CONCLUSION: 1. Osteopenia. 2. No acute abnormality. Gonzalo Arias Jr., MD Knee X-Ray 09/07/17 0000 Signed Impressions: Service Date/Time: Thursday, September 07, 2017 14:56 - CONCLUSION: 1. No acute abnormality. 2. Osteopenia. Gonzalo Arias Jr., MD Foot X-Ray 09/07/17 0000 Signed Impressions: Service Date/Time: Thursday, September 07, 2017 14:56 - CONCLUSION: 1. Limited study of the phalanges secondary to overlap. 2. Concern for possible dislocation at the first metatarsophalangeal joint. The concern is the proximal phalanx is along the dorsum of the metatarsal. Gonzalo Arias Jr., MD Ankle X-Ray 09/07/17 0000 Signed Impressions: Service Date/Time: Thursday, September 07, 2017 14:56 - CONCLUSION: Osteopenia. No acute abnormality. Gonzalo Arias Jr., MD Objective Remarks Lying in bed, looks comfortable CTA ant RRR +BS nontender no c/c/ area of ecchymosis dorsum left foot , some edema, tender A/P Problem List: (1) Dislocation of great toe, left, closed ICD Codes: S93.105A - Unspecified dislocation of left toe(s), initial encounter Status: Acute Plan: Seen by Dr Ashford for podiatry. attempted relocation at bedside, then ordered CT to determine if she needed reduction in OR. Reviewed CT scan with her . She did not feel would need surgical intervention. Could be discharged with post op shoe for ambulation. Will need rehab short term. (2) Generalized weakness ICD Codes: R53.1 - Weakness Status: Acute Plan: Feeling stronger with some good meals and hydration. Will have PT see her. Will likely need short term rehab for strengthening and ambulation with post op shoe. (3) HTN (hypertension), benign ICD Codes: I10 - HTN (hypertension), benign Status: Chronic Plan: blood pressure initially elevated but now improved with regular intake of home blood pressure medications. Discharge Planning consult case management for rehab Problem Qualifiers (1) Dislocation of great toe, left, closed: Qualified Codes: S93.105A - Unspecified dislocation of left toe(s), initial encounter Shona Murray MD Sep 09, 2017 11:34
[2017-09-09] MEDS ORDERED: ATEN25TA PO (14:21)
[2017-09-09] MEDS ORDERED: LEVE500 PO (14:21)
[2017-09-09] MEDS ORDERED: NIFE60TA8 PO (14:21)
[2017-09-09] MEDS ORDERED: HYDR-3516 PO (14:21)
[2017-09-09] MEDS ORDERED: PRIM250 PO (14:21)
[2017-09-09] MEDS ORDERED: ALLO300 PO (14:21)
== END 2017-09-09 16:08 ==
LOC: PHED 13:25 → PHEDA 19:10 → PH3A 21:20
PROVIDERS: ADMIT Legal Medicine; ATTEND Legal Medicine
DX: S93.105A Unspecified dislocation of left toe(s), initial encounter (principal); W01.198A Fall on same level from slipping, tripping and stumbling with subsequent striking against other object, initial encounter; Y92.012 Bathroom of single-family (private) house as the place of occurrence of the external cause; M10.9 Gout, unspecified; D61.9 Aplastic anemia, unspecified; G40.909 Epilepsy, unspecified, not intractable, without status epilepticus; I48.0 Paroxysmal atrial fibrillation; N18.3 Chronic kidney disease, stage 3 (moderate); I12.9 Hypertensive chronic kidney disease with stage 1 through stage 4 chronic kidney disease, or unspecified chronic kidney disease
CPT/HCPCS: 70450; 73560; 73590; 73610; 73630; 73660; 73700; 80053; 80177; 81001; 82550; 84443; 84484; 85025; 85610; 85730; 93005; 96360; 96361; 97162; 99285; G0378; G8987; G8988; L3260; P9612

== ENCOUNTER 2017-09-13 03:43 | Observation (INO) | payer MEDICARE ==
[~2017-09-13] VITALS: Ht 160 cm; Wt 60.0 kg
[2017-09-13] VITALS (11 sets, daily range): BP systolic 124–156; BP diastolic 57–94; PULSE 73–101; RESP 16–20; TEMP 97.9–98; O2SAT 91–99
[~2017-09-13 03:43] MED LIST changes: -ALBU.5I NEB; -ALLO100T PO; +ALLO300 PO; +ATEN25TA PO; +HYDR-3516 PO; -IPRA0.02 NEB; -LORTA5 PO; -NIFE1TAB86 PO; +NIFE60TA8 PO; +PRIM250 PO; -PRIM50TA PO
[2017-09-13 04:28] LABS: AUTOMATED NEUTROPHIL # 4.1 TH/MM3 (1.8-7.7); BASOPHIL % 0.6 % (0.0-2.0); EOSINOPHIL # 0.6 TH/MM3 (0-0.4); EOSINOPHIL % 8.2 % (0.0-4.0); HEMATOCRIT 29.3 % (35.0-46.0); HEMO FLAGS DIFF FINAL; LYMPH % 22.6 % (9.0-44.0); LYMPHOCYTE # 1.5 TH/MM3 (1.0-4.8); MEAN CELL VOLUME 106.6 FL (80.0-100.0); MEAN CORPUSCULAR HEMOGLOBIN 34.7 PG (27.0-34.0); MEAN CORPUSCULAR HGB CONC 32.5 % (32.0-36.0); MONO % 8.8 % (0.0-8.0); NEUT % 59.8 % (16.0-70.0); PLATELET COUNT 224 TH/MM3 (150-450); RED BLOOD COUNT 2.75 MIL/MM3 (4.00-5.30); WHITE BLOOD COUNT 6.8 TH/MM3 (4.0-11.0)
[2017-09-13] MEDS ORDERED: MORPHINE SULFATE 2 MG/ML INJ IV PUSH ONE (04:30)
[2017-09-13] MEDS ORDERED: ONDANSETRON HCL 4 MG/2 ML VIAL IV PUSH ONE (04:30)
[2017-09-13 04:39] LABS: APTT (PATIENT) 25.1 SEC (24.3-30.1); PROTHROMBIN TIME - PATIENT 10.5 SEC (9.8-11.6)
--- NOTE | 2017-09-13 04:51 | PD ---
HPI Chief Complaint: Fall Time Seen by Provider: 03:46 Travel History International Travel<30 days: No Contact w/Intl Traveler<30days: No Traveled to known affect area: No History of Present Illness HPI The patient is an 87 year old female who presents to the [facility] emergency department with a history of falling prior to arrival at her intermediate. The patient was being assisted to the bathroom by the intermediate staff when she lost her balance and was eased to the ground. The patient reports that she now has right-sided rib cage pain. The patient reports the pain is sharp in character. She denies having any shortness of breath associated with it. She denies hitting her head or losing consciousness. She does however report having neck pain. She reports that she does have chronic neck pain related to arthritis. She denies having any new extremity pain. She denies having any abdominal pain. On review of systems otherwise she denies having any recent fevers, cough, congestion, vomiting, diarrhea, urinary symptoms, weakness of her extremities, or numbness or tingling of her extremities. The patient reports that she is currently in rehabilitation related to frequent falls and gait instability. [facility] Past Medical History Narrative Medical The patient's past medical history is significant for having aplastic anemia, history of arthritis, gout, chronic renal insufficiency, prior history of intracerebral hemorrhage, seizure disorder, paroxysmal atrial fibrillation. Anemia: Yes (APLASTIC ANEMIA) Arthritis: Yes Asthma: No Atrial Fibrillation: Yes Blood Disorders: No Anxiety: No Depression: No Heart Rhythm Problems: Yes ("RACING HEART BEAT") Cancer: No Cardiovascular Problems: Yes High Cholesterol: No Chest Pain: No Congestive Heart Failure: No COPD: No Cerebrovascular Accident: Yes Diabetes: No Diminished Hearing: No Endocrine: No Gastrointestinal Disorders: Yes GERD: Yes Gout: Yes Genitourinary: Yes (KIDNEY DISEASE,UNABLE TO CATH PT.MARSH HITS OBSTRUCTION) Headaches: No Hiatal Hernia: No Hypertension: Yes Immune Disorder: No Implanted Vascular Access Dvce: No Kidney Stones: No Musculoskeletal: Yes (HX OF OSTEOMYELITIS) Neurologic: Yes Psychiatric: No Reproductive: No Respiratory: Yes (HX OF FREQUENT BRONCHITIS) Immunizations Current: Yes Migraines: No Renal Failure: Yes Seizures: Yes (32 years ago) Sickle Cell Disease: No Sleep Apnea: No Thyroid Disease: No Ulcer: Yes Tetanus Vaccination: > 5 Years Influenza Vaccination: Yes Menopausal: Yes Dilation and Curettage (D&C): Yes Past Surgical History Narrative Surgical The patient's past surgical history is significant for an appendectomy, cholecystectomy. Abdominal Surgery: Yes (APPY) Appendectomy: Yes Cardiac Surgery: No Cholecystectomy: Yes Ear Surgery: No Endocrine Surgery: No Eye Surgery: No Genitourinary Surgery: No Gynecologic Surgery: Yes (D&C) Neurologic Surgery: No Oral Surgery: No Thoracic Surgery: No Other Surgery: Yes Social History Alcohol Use: No Tobacco Use: No Substance Use: No Allergies-Medications (Allergen,Severity, Reaction): Coded Allergies: aspirin (Unverified Allergy, Severe, Anemia, 07/05/17) penicillin G (Unverified Allergy, Unknown, ALLERGY FROM A YOUNG AGE/ UNKNOWN REACTION, 07/05/17) Reported Meds & Prescriptions Reported Meds & Active Scripts Active Zyloprim (Allopurinol) 300 Mg Tab 300 Mg PO DAILY Keppra (Levetiracetam) 500 Mg Tab 500 Mg PO Q12HR Mysoline (Primidone) 250 Mg Tab 250 Mg PO DAILY 30 Days Hydrocodone-Acetaminophen 5-325 mg Tab 1 Tab PO Q6H PRN 7 Days Nifedipine ER 24 HR (Nifedipine) 60 Mg Tab 60 Mg PO DAILY 30 Days Atenolol 25 Mg Tab 25 Mg PO DAILY 30 Days Review of Systems Except as stated in HPI: all other systems reviewed are Neg General / Constitutional: No: Fever Eyes: No: Visual changes HENT: Positive: Headaches, Neck Stiffness, Neck Pain, No: Rhinorrhea, Congestion Cardiovascular: Positive: Chest Pain or Discomfort (right-sided posterior thorax pain.), No: Dyspnea on exertion Respiratory: No: Cough, Shortness of Breath Gastrointestinal: No: Abdominal Pain Genitourinary: No: Dysuria Musculoskeletal: Positive: Myalgias, Pain Skin: No Rash Neurologic: No: Weakness, Focal Abnormalities, Headache, Change in Mentation, Slurred Speech, Sensory Disturbance Psychiatric: No: Depression Endocrine: No: Polydipsia Hematologic/Lymphatic: No: Easy Bruising Physical Exam Narrative General: The patient is a well-developed well-nourished female was uncomfortable appearing on arrival, intermittently reporting sharp pains in the right side of her chest. The patient was brought in with full C-spine immobilization on a backboard. Head and Neck exam: Head is normocephalic atraumatic. Eyes: EOMI, pupils are equal round and reactive to light. Nose: Midline septum with pink mucous membranes Mouth: Dentition unremarkable. Moist mucus membranes. Posterior oropharynx is not erythematous. No tonsillar hypertrophy. Uvula midline. Airway patent. Neck: The patient's trachea is midline. The patient had cervical collar in place. Cardiovascular: Regular rate and rhythm without murmurs, gallops, or rubs. Lungs: Clear to auscultation bilaterally. No wheezes, rhonchi, or rales. The patient has chest wall tenderness on palpation along the right side of her chest wall. There is no crepitus or step-off. No flail segment. Abdomen: Soft, without tenderness to palpation in all 4 quadrants of the abdomen. No guarding, rebound, or rigidity. Normal bowel sounds are audible. No tenderness on palpation of McBurney's point Extremities: No clubbing, cyanosis, or edema. 2+ pulses in all 4 extremities. No pelvis tenderness on palpation. No instability on pelvic rock. Back: The patient was log rolled off the backboard. No spinous process tenderness to palpation. The patient has no step-off or crepitus. No erythema or ecchymosis. No costovertebral angle tenderness to palpation. Neurologic Exam: Cranial nerves 2-12 were intact on exam. Strength is 5/5 in all 4 extremities. No sensory deficits noted. Skin Exam: No rash noted. Intact skin that is warm and dry. Data Data Last Documented VS Vital Signs Date Time Temp Pulse Resp B/P (MAP) Pulse Ox O2 Delivery O2 Flow Rate FiO2 09/13/17 04:00 Room Air 09/13/17 03:57 97.9 84 16 140/84 (102) 99 Orders Orders Electrocardiogram (09/13/17 03:59) Complete Blood Count With Diff (09/13/17 03:59) Basic Metabolic Panel (Bmp) (09/13/17 03:59) Prothrombin Time / Inr (Pt) (09/13/17 03:59) Act Partial Throm Time (Ptt) (09/13/17 03:59) Ct Brain W/O Iv Contrast(Rout) (09/13/17 03:59) Pelvis, Ap Only (Routine) (09/13/17 03:59) Iv Access Insert/Monitor (09/13/17 03:59) Ecg Monitoring (09/13/17 03:59) Oximetry (09/13/17 03:59) Ct Cerv Spine W/O Contrast (09/13/17 ) Ribs, Uni (W/Exp Cxr-Min 3vw) (09/13/17 ) Morphine Inj (Morphine Inj) (09/13/17 04:30) Ondansetron Inj (Zofran Inj) (09/13/17 04:30) Admit Order (Ed Use Only) (09/13/17 05:31) Labs Laboratory Tests Test 09/13/17 04:10 White Blood Count 6.8 TH/MM3 Red Blood Count 2.75 MIL/MM3 Hemoglobin 9.5 GM/DL Hematocrit 29.3 % Mean Corpuscular Volume 106.6 FL Mean Corpuscular Hemoglobin 34.7 PG Mean Corpuscular Hemoglobin Concent 32.5 % Red Cell Distribution Width 16.0 % Platelet Count 224 TH/MM3 Mean Platelet Volume 8.4 FL Neutrophils (%) (Auto) 59.8 % Lymphocytes (%) (Auto) 22.6 % Monocytes (%) (Auto) 8.8 % Eosinophils (%) (Auto) 8.2 % Basophils (%) (Auto) 0.6 % Neutrophils # (Auto) 4.1 TH/MM3 Lymphocytes # (Auto) 1.5 TH/MM3 Monocytes # (Auto) 0.6 TH/MM3 Eosinophils # (Auto) 0.6 TH/MM3 Basophils # (Auto) 0.0 TH/MM3 CBC Comment DIFF FINAL Differential Comment Prothrombin Time 10.5 SEC Prothromb Time International Ratio 1.0 RATIO Activated Partial Thromboplast Time 25.1 SEC Blood Urea Nitrogen 21 MG/DL Creatinine 1.23 MG/DL Random Glucose 97 MG/DL Calcium Level 10.0 MG/DL Sodium Level 140 MEQ/L Potassium Level 4.4 MEQ/L Chloride Level 113 MEQ/L Carbon Dioxide Level 19.2 MEQ/L Anion Gap 8 MEQ/L Estimat Glomerular Filtration Rate 41 ML/MIN MDM Medical Decision Making Medical Screen Exam Complete: Yes Emergency Medical Condition: Yes Medical Record Reviewed: Yes Interpretation(s) Last Impressions Pelvis X-Ray 09/13/17 0359 Signed Impressions: Service Date/Time: Wednesday, September 13, 2017 04:37 - CONCLUSION: 1. Old fractures of the inferior pubic rami bilaterally. 2. Degenerative changes. Fernando Madden MD Head CT 09/13/17 0359 Signed Impressions: Service Date/Time: Wednesday, September 13, 2017 04:45 - CONCLUSION: Cerebral atrophy and chronic ischemic small vessel vasculopathy. Complete opacification left maxillary sinus. Fernando Madden MD Ribs X-Ray 09/13/17 0000 Signed Impressions: Service Date/Time: Wednesday, September 13, 2017 04:37 - CONCLUSION: Several right-sided rib fractures without pneumothorax. Fernando Madden MD Cervical Spine CT 09/13/17 0000 Signed Impressions: Service Date/Time: Wednesday, September 13, 2017 04:45 - CONCLUSION: 1. Multilevel subluxations not significantly changed. 2. No acute fracture. Fernando Madden MD Differential Diagnosis Rib fracture, versus pneumothorax, versus hemothorax, versus muscle contusion Narrative Course During the course of the patients emergency department visit, the patients history, examination, and differential diagnosis were reviewed with the patient. The patient was placed on a bus monitor with oximetry and frequent blood pressure monitoring. The patient had IV access obtained and blood work sent for analysis. The patient had an ECG done on arrival. The patient's ECG reveals a sinus rhythm, heart rate of 89, no acute ST segment elevation. T waves are inverted in V1, QRS duration is 88 ms, QTC 380 ms. The patient was initially provided morphine for pain, Zofran for nausea. The patients laboratory studies were reviewed and remarkable for a white count of 6.8, hemoglobin 9.5, platelets 224 with 8.8 monocytes, basic metabolic profile is remarkable for chloride of 113, CO2 19.2, BUN 21, creatinine 1.23, PT 10.5, PTT 25.1 Radiology studies were reviewed and remarkable for a CT scan of the brain that shows cerebral atrophy and chronic ischemic small vessel vasculopathy, complete opacification of the left maxillary sinus. Pelvis x-ray shows old fractures of the inferior pubic rami bilaterally, degenerative changes. CT scan of the C- spine shows multilevel subluxations not significantly changed, no acute fractures. Rib series on the right reveals several right-sided rib fractures without pneumothorax. The patient will be admitted to the hospital for observation and pain control including education on incentive spirometry. The patients results were discussed with the patient, including the plan of care. I explained that further testing and/ or monitoring is indicated based on the patients history, examination, and/ or laboratory findings. Therefore, I recommended admission for additional evaluation. The patient expressed understanding and was agreeable with this plan. The patient was admitted to the hospital in stable condition and sent to a bed under the [facility]. Physician Communication Physician Communication The patient's case was discussed with Dr. Shaffer who did agree to admit the patient for further evaluation and treatment at this time. Diagnosis Primary Impression: Fall Qualified Codes: W19.XXXA - Unspecified fall, initial encounter Additional Impression: Multiple fractures of ribs, right side, initial encounter for closed fracture Admitting Information Admitting Physician Requests: Aleksandra Sevilla MD Sep 13, 2017 04:51
[2017-09-13 04:56] LABS: BICARBONATE 19.2 MEQ/L (21.0-32.0); POTASSIUM 4.4 MEQ/L (3.5-5.1)
--- NOTE | 2017-09-13 05:10 | RADRPT ---
EXAM DATE/TIME: 09/13/2017 04:37 [facility] COMPARISON: PELVIS AP ONLY, April 04, 2015, 13:24. INDICATIONS : Pain post fall. MEDICAL HISTORY : Cerebrovascular disease. Hypertension. SURGICAL HISTORY : None. ENCOUNTER: Initial ACUITY: 1 day PAIN SCORE: 3/10 LOCATION: pelvis. FINDINGS: A single frontal view of the pelvis demonstrates no evidence of fracture. The bony pelvic ring is in tact. Bony mineralization is normal. The soft tissues are intact. There are old fractures along the inferior pubic rami bilaterally. Hips are intact. No fractures. Degenerative changes of the lower otto mbar spine. CONCLUSION: 1. Old fractures of the inferior pubic rami bilaterally. 2. Degenerative changes. Fernando Madden MD on September 13, 2017 at 5:07 Board Certified Radiologist. This report was verified electronically.
--- NOTE | 2017-09-13 05:14 | RADRPT ---
EXAM DATE/TIME: 09/13/2017 04:37 [facility] COMPARISON: No previous studies available for comparison. INDICATIONS : Right side rib pain post fall. MEDICAL HISTORY : Cerebrovascular disease. Hypertension. SURGICAL HISTORY : None. ENCOUNTER: Initial ACUITY: 1 day PAIN SCORE: 9/10 LOCATION: Right ribs. FINDINGS: Multiple views of the right ribs were performed. There are several right-sided rib fractures. Expir atory view of the chest is negative for pneumothorax. The mediastinal structures are midline. CONCLUSION: Several right-sided rib fractures without pneumothorax. Fernando Madden MD on September 13, 2017 at 5:12 Board Certified Radiologist. This report was verified electronically.
--- NOTE | 2017-09-13 05:16 | RADRPT ---
EXAM DATE/TIME: 09/13/2017 04:45 [facility] COMPARISON: CT BRAIN W/O CONTRAST, September 07, 2017, 15:14. INDICATIONS : Trauma. Fall. RADIATION DOSE: 33.80 CTDIvol (mGy) MEDICAL HISTORY : Cerebrovascular disease. Hypertension. Renal insufficiency. SURGICAL HISTORY : None. ENCOUNTER: Initial ACUITY: 1 day PAIN SCALE: 6/10 LOCATION: neck TECHNIQUE: Multiple contiguous axial images were obtained of the head. Using automated exposure control and adj ustment of the mA and/or kV according to patient size, radiation dose was kept as low as reasonably a chievable to obtain optimal diagnostic quality images. DICOM format image data is available electro nically for review and comparison. FINDINGS: There is marked central and cortical atrophy with dilatation of ventricular and sulcal spaces. Areas of low-attenuation are seen throughout the white matter. There is no parenchymal hemorrhage, acute in farction or mass lesion identified. There are no extra-axial fluid collections appreciated. The pos terior fossa is unremarkable with midline fourth ventricle. The portion of the orbits visualized are unremarkable. Opacification left maxillary sinus. CONCLUSION: Cerebral atrophy and chronic ischemic small vessel vasculopathy. Complete opacification left maxillar y sinus. Fernando Madden MD on September 13, 2017 at 5:14 Board Certified Radiologist. This report was verified electronically.
--- NOTE | 2017-09-13 05:19 | RADRPT ---
EXAM DATE/TIME: 09/13/2017 04:45 [facility] COMPARISON: No previous studies available for comparison. INDICATIONS : Trauma.Fall. RADIATION DOSE: 22.05 CTDIvol (mGy) MEDICAL HISTORY : Cardiovascular disease. Hypertension. Renal insufficiency. SURGICAL HISTORY : None. ENCOUNTER: Initial ACUITY: 1 day PAIN SCALE: 6/10 LOCATION: cranial TECHNIQUE: Volumetric scanning of the cervical spine was performed. Multiplanar reconstructions in the sagittal, coronal and oblique axial planes were performed. Using automated exposure control and adjustment o f the mA and/or kV according to patient size, radiation dose was kept as low as reasonably achievable to obtain optimal diagnostic quality images. DICOM format image data is available electronically f or review and comparison. FINDINGS: VERTEBRAE: Mild loss of height of C6 again seen. ALIGNMENT: Anterolisthesis C3 on C4, C4 on C5 and C5 on C6. Multilevel degenerative changes C4-C7. No acute frac ture. C2-C3: Small central protrusion without canal stenosis. The neural foramina are bilaterally patent. C3-C4: The bony spinal canal is normal in size. No evidence of disc bulge or herniation. The neural forami na are bilaterally patent. C4-C5: The bony spinal canal is normal in size. No evidence of disc bulge or herniation. The neural forami na are bilaterally patent. C5-C6: The bony spinal canal is normal in size. No evidence of disc bulge or herniation. The neural forami na are bilaterally patent. C6-C7: The bony spinal canal is normal in size. No evidence of disc bulge or herniation. The neural forami na are bilaterally patent. C7-T1: The bony spinal canal is normal in size. No evidence of disc bulge or herniation. The neural forami na are bilaterally patent. CONCLUSION: 1. Multilevel subluxations not significantly changed. 2. No acute fracture. Fernando Madden MD on September 13, 2017 at 5:15 Board Certified Radiologist. This report was verified electronically.
[2017-09-13] MEDS ORDERED: MORPHINE SULFATE 4 MG/ML INJ IV PUSH ONE (05:45)
[2017-09-13] MEDS: SODIUM CHLOR 0.9% 1000 ML INJ 1,000 ML IV SCH ×2 (05:56→18:51)
--- NOTE | 2017-09-13 09:59 | HHI.HP ---
HPI Service [facility] Hospitalists Primary Care Physician Norman Moctezuma D.O. Admission Diagnosis fall with multiple right rib fractures Chief Complaint: Right sided rib pain Travel History International Travel<30 Days: No Contact w/Intl Traveler <30 Da: No Traveled to Known Affected Are: No History of Present Illness Patient is a pleasant 87-year-old female who was recently hospitalized at [facility] 09/07/17 through 09/10/17. During that previous hospitalization, patient was seen by podiatry and treated for dislocation of her left great toe. Patient was found to have generalized weakness, and subsequently discharged to a prison facility. Patient was readmitted through the ER last night due to weakness, and a fall. Patient complained of right rib pain and x-rays were obtained which did show multiple rib fractures. Patient denies palpitations, diaphoresis, or shortness of breath. Review of Systems Constitutional: DENIES: Diaphoretic episodes, Fatigue, Fever, Weight gain, Weight loss, Chills, Dizziness, Change in appetite, Night Sweats Endocrine: DENIES: Heat/cold intolerance, Polydipsia, Polyuria, Polyphagia Eyes: DENIES: Blurred vision, Diplopia, Eye inflammation, Eye pain, Vision loss , Photosensitivity, Double Vision Ears, nose, mouth, throat: DENIES: Tinnitus, Hearing loss, Vertigo, Nasal discharge, Oral lesions, Throat pain, Hoarseness, Ear Pain, Running Nose, Epistaxis, Sinus Pain, Toothache, Odynophagia Respiratory: DENIES: Apneas, Cough, Snoring, Wheezing, Hemoptysis, Sputum production, Shortness of breath Cardiovascular: DENIES: Chest pain, Palpitations, Syncope, Dyspnea on Exertion , PND, Lower Extremity Edema, Orthopnea, Claudication Gastrointestinal: DENIES: Abdominal pain, Black stools, Bloody stools, BRB per rectum, Constipation, Diarrhea, GERD, Nausea, Reflux, Vomiting, Difficulty Swallowing, Anorexia Genitourinary: DENIES: Urinary frequency, Urinary incontinence, Urgency, Hematuria, Dysuria, Nocturia Musculoskeletal: DENIES: Joint pain, Muscle aches, Stiffness, Joint Swelling, Back pain, Neck pain Integumentary: DENIES: Abnormal pigmentation, Pruritus, Rash, Nail changes, Breast masses, Breast skin changes, Nipple discharge Hematologic/lymphatic: DENIES: Bruising, Lymphadenopathy Immunologic/allergic: DENIES: Eczema, Urticaria Neurologic: DENIES: Abnormal gait, Headache, Localized weakness, Paresthesias, Seizures, Speech Problems, Tremor, Poor Balance Psychiatric: DENIES: Anxiety, Confusion, Mood changes, Depression, Hallucinations, Agitation, Suicidal Ideation, Homicidal Ideation, Delusions, History of Bipolar, History of Schizophrenia Past Family Social History Past Medical History 1. Gout. 2. Aplastic anemia. 3. CKD III. 4. She has had prior intracerebral hemorrhage. 5. Seizure disorder. 6. Paroxysmal atrial fibrillation. Past Surgical History 1. Appendectomy. 2. Cholecystectomy. Reported Medications Reported Meds & Active Scripts Active Zyloprim (Allopurinol) 300 Mg Tab 300 Mg PO DAILY Keppra (Levetiracetam) 500 Mg Tab 500 Mg PO Q12HR Mysoline (Primidone) 250 Mg Tab 250 Mg PO DAILY 30 Days Hydrocodone-Acetaminophen 5-325 mg Tab 1 Tab PO Q6H PRN 7 Days Nifedipine ER 24 HR (Nifedipine) 60 Mg Tab 60 Mg PO DAILY 30 Days Atenolol 25 Mg Tab 25 Mg PO DAILY 30 Days Allergies: Coded Allergies: aspirin (Unverified Allergy, Severe, Anemia, 07/05/17) milk (Verified Allergy, Intermediate, Diarrhea, 09/13/17) penicillin G (Unverified Allergy, Unknown, ALLERGY FROM A YOUNG AGE/ UNKNOWN REACTION, 07/05/17) Family History Noncontributory Social History She is for 3 years now, her from Alzheimer's. She has children in the vicinity but still lives alone. Her family bring her meals that are simple to prepare. She uses a walker at home. She wants to try to maintain her independence and return to her home if she is able to. Physical Exam Vital Signs Vital Signs Date Time Temp Pulse Resp B/P (MAP) Pulse Ox O2 Delivery O2 Flow Rate FiO2 09/13/17 08:30 82 18 131/94 (106) 99 Room Air 09/13/17 06:11 78 16 156/72 (100) 98 Room Air 09/13/17 04:00 Room Air 09/13/17 03:57 97.9 84 16 140/84 (102) 99 Physical Exam GENERAL: This is a well-nourished, well-developed patient, in no apparent distress. SKIN: No rashes, ecchymoses or lesions. Cool and dry. HEAD: Atraumatic. Normocephalic. No temporal or scalp tenderness. EYES: Pupils equal round and reactive. Extraocular motions intact. No scleral icterus. No injection or drainage. ENT: Nose without bleeding, purulent drainage or septal hematoma. Throat without erythema, tonsillar hypertrophy or exudate. Uvula midline. Airway patent. NECK: Trachea midline. No JVD or lymphadenopathy. Supple, nontender, no meningeal signs. CARDIOVASCULAR: Regular rate and rhythm without murmurs, gallops, or rubs. RESPIRATORY: Clear to auscultation. Breath sounds equal bilaterally. No wheezes , rales, or rhonchi. GASTROINTESTINAL: Abdomen soft, non-tender, nondistended. No hepato-splenomegaly , or palpable masses. No guarding. MUSCULOSKELETAL: Extremities without clubbing, cyanosis, or edema. No joint tenderness, effusion, or edema noted. No calf tenderness. Negative Homans sign bilaterally. NEUROLOGICAL: Awake and alert. Cranial nerves II through XII intact. Motor and sensory grossly within normal limits. Five out of 5 muscle strength in all muscle groups. Normal speech. Laboratory Laboratory Tests Test 09/13/17 04:10 White Blood Count 6.8 Red Blood Count 2.75 Hemoglobin 9.5 Hematocrit 29.3 Mean Corpuscular Volume 106.6 Mean Corpuscular Hemoglobin 34.7 Mean Corpuscular Hemoglobin Concent 32.5 Red Cell Distribution Width 16.0 Platelet Count 224 Mean Platelet Volume 8.4 Neutrophils (%) (Auto) 59.8 Lymphocytes (%) (Auto) 22.6 Monocytes (%) (Auto) 8.8 Eosinophils (%) (Auto) 8.2 Basophils (%) (Auto) 0.6 Neutrophils # (Auto) 4.1 Lymphocytes # (Auto) 1.5 Monocytes # (Auto) 0.6 Eosinophils # (Auto) 0.6 Basophils # (Auto) 0.0 CBC Comment DIFF FINAL Differential Comment Prothrombin Time 10.5 Prothromb Time International Ratio 1.0 Activated Partial Thromboplast Time 25.1 Blood Urea Nitrogen 21 Creatinine 1.23 Random Glucose 97 Calcium Level 10.0 Sodium Level 140 Potassium Level 4.4 Chloride Level 113 Carbon Dioxide Level 19.2 Anion Gap 8 Estimat Glomerular Filtration Rate 41 Result Diagram: 09/13/17 04109/13/17 041 Imaging Last Impressions Pelvis X-Ray 09/13/17 [id number] Signed Impressions: Service Date/Time: Wednesday, September 13, 2017 04:37 - CONCLUSION: 1. Old fractures of the inferior pubic rami bilaterally. 2. Degenerative changes. Fernando Madden MD Head CT 09/13/17 0359 Signed Impressions: Service Date/Time: Wednesday, September 13, 2017 04:45 - CONCLUSION: Cerebral atrophy and chronic ischemic small vessel vasculopathy. Complete opacification left maxillary sinus. Fernando Madden MD Ribs X-Ray 09/13/17 0000 Signed Impressions: Service Date/Time: Wednesday, September 13, 2017 04:37 - CONCLUSION: Several right-sided rib fractures without pneumothorax. Fernando Madden MD Cervical Spine CT 09/13/17 0000 Signed Impressions: Service Date/Time: Wednesday, September 13, 2017 04:45 - CONCLUSION: 1. Multilevel subluxations not significantly changed. 2. No acute fracture. Fernando Madden MD Septic Shock Reassessment Heart: Regular rate and rhythm Lungs: Clear Skin: Warm Peripheral Pulses: Bounding Right Radial Bounding Left Radial Bounding Right Popliteal Bounding Left Popliteal Bounding Right Dorsalis Pedis Bounding Left Dorsalis Pedis Bounding Right Posterior Tibial Bounding Left Posterior Tibial Capillary Refill: Brisk Caprini VTE Risk Assessment Caprini VTE Risk Assessment: No/Low Risk (score <= 1) Caprini Risk Assessment Model Point Value = 1 Point Value = 2 Point Value = 3 Point Value = 5 Age 41-60 Minor surgery BMI > 25 kg/m2 Swollen legs Varicose veins or History of unexplained or recurrent spontaneous Oral contraceptives or hormone replacement Sepsis (< 1 month) Serious lung disease, including pneumonia (< 1 month) Abnormal pulmonary function Acute myocardial infarction Congestive heart failure (< 1 month) History of inflammatory bowel disease Medical patient at bed rest Age 61-74 Arthroscopic surgery Major open surgery (> 45 min) Laparoscopic surgery (> 45 min) Malignancy Confined to bed (> 72 hours) Immobilizing plaster cast Central venous access Age >= 75 History of VTE Family history of VTE Factor V Leiden Prothrombin [id number] Lupus anticoagulant Anticardiolipin antibodies Elevated serum homocysteine Heparin-induced thrombocytopenia Other congenital or acquired thrombophilia Stroke (< 1 month) Elective arthroplasty Hip, pelvis, or leg fracture Acute spinal cord injury (< 1 month) Prophylaxis Regimen Total Risk Factor Score Risk Level Prophylaxis Regimen 0-1 Low Early ambulation 2 Moderate Order ONE of the following: *Sequential Compression Device (SCD) *Heparin 5000 units SQ BID 3-4 Higher Order ONE of the following medications: *Heparin 5000 units SQ TID *Enoxaparin/Lovenox 40 mg SQ daily (WT < 150 kg, CrCl > 30 mL/min) *Enoxaparin/Lovenox 30 mg SQ daily (WT < 150 kg, CrCl > 10-29 mL/min) *Enoxaparin/Lovenox 30 mg SQ BID (WT < 150 kg, CrCl > 30 mL/min) AND/OR *Sequential Compression Device (SCD) 5 or more Highest Order ONE of the following medications: *Heparin 5000 units SQ TID (Preferred with Epidurals) *Enoxaparin/Lovenox 40 mg SQ daily (WT < 150 kg, CrCl > 30 mL/min) *Enoxaparin/Lovenox 30 mg SQ daily (WT < 150 kg, CrCl > 10-29 mL/min) *Enoxaparin/Lovenox 30 mg SQ BID (WT < 150 kg, CrCl > 30 mL/min) AND *Sequential Compression Device (SCD) Assessment and Plan Problem List: (1) Rib fractures ICD Codes: S22.39XA - Fracture of one rib, unspecified side, initial encounter for closed fracture Status: Acute Plan: - There is no surgical repair for rib fractures - Patient should use incentive spirometer - Continue Tylenol as needed for pain - Continue Revere as needed for severe pain - I will discharge the patient back to prison facility - Aggressive physical therapy and mobilization is in patient's best interest (2) HTN (hypertension), benign ICD Codes: I10 - HTN (hypertension), benign Status: Chronic Plan: - Continue atenolol - Hold nifedipine for now - This could be restarted at prison facility if patient's blood pressure elevates - Maintain low-sodium diet (3) Osteoarthritis ICD Codes: M19.90 - Osteoarthritis Status: Chronic Plan: - Physical therapy - Tylenol as needed (4) Seizure disorder ICD Codes: G40.909 - Seizure disorder Status: Acute Plan: - Stable - Continue Keppra Problem Qualifiers (1) Rib fractures: Qualified Codes: S22.41XA - Multiple fractures of ribs, right side, initial encounter for closed fracture (2) Osteoarthritis: Arvind Cai DO Sep 13, 2017 09:59
[2017-09-13] MEDS ORDERED: HYDR-3516 PO (10:32)
[2017-09-13] MEDS: ATENOLOL 25 MG TAB PO SCH (10:50)
[2017-09-13] MEDS: levETIRAcetam 500 MG TAB PO SCH ×2 (10:50→21:19)
[2017-09-13] MEDS: PRIMIDONE 250 MG TAB PO SCH (10:51)
[2017-09-13] MEDS: ALLOPURINOL 300 MG TAB PO SCH (10:51)
[2017-09-13] MEDS: ACETAMINOPHEN/HYDROcodone 325 MG/5 MG TAB PO PRN ×2 (10:51→17:57)
--- NOTE | 2017-09-13 16:07 | EKG ---
Date Performed: 09/13/2017 Time Performed: 04:07:18 PTAGE: 87 years EKG: Sinus rhythm WITH FIRST DEGREE AV BLOCK ABNORMAL ECG Compared to prior tracing no significant change PREVIOUS TRACING : 09/07/2017 15.53 DOCTOR: Everette Diaz Interpretating Date/Time 09/13/2017 16:05:21
[2017-09-14 03:53] VITALS: PULSE 76
[2017-09-14 03:59] VITALS: PULSE 79
[2017-09-14 05:53] VITALS: BP 154/74; PULSE 89; RESP 18; TEMP 98.3; O2SAT 93
[2017-09-14 07:34] VITALS: BP 173/78; PULSE 96; RESP 18; TEMP 98; O2SAT 95
[2017-09-14 08:00] VITALS: PULSE 94
[2017-09-14] MEDS: levETIRAcetam 500 MG TAB PO SCH (09:42)
[2017-09-14] MEDS: PRIMIDONE 250 MG TAB PO SCH (09:43)
[2017-09-14] MEDS: ALLOPURINOL 300 MG TAB PO SCH (09:43)
[2017-09-14] MEDS: ACETAMINOPHEN/HYDROcodone 325 MG/5 MG TAB PO PRN (09:44)
[2017-09-14] MEDS: ATENOLOL 25 MG TAB PO SCH (09:45)
[2017-09-14] MEDS: SODIUM CHLOR 0.9% 1000 ML INJ 1,000 ML IV SCH (10:21)
== END 2017-09-14 11:18 | disposition home or self-care (01) ==
LOC: NEPE 03:43 → NEDA 05:35 → NEPFCDU 10:15
PROVIDERS: ADMIT Hospitalist; ATTEND Hospitalist
DX: S22.41XA Multiple fractures of ribs, right side, initial encounter for closed fracture (principal); G89.29 Other chronic pain; M10.9 Gout, unspecified; R29.6 Repeated falls; M54.2 Cervicalgia; R53.1 Weakness; I12.9 Hypertensive chronic kidney disease with stage 1 through stage 4 chronic kidney disease, or unspecified chronic kidney disease; N18.3 Chronic kidney disease, stage 3 (moderate); I48.0 Paroxysmal atrial fibrillation; W19.XXXA Unspecified fall, initial encounter; M46.92 Unspecified inflammatory spondylopathy, cervical region; K21.9 Gastro-esophageal reflux disease without esophagitis; G40.909 Epilepsy, unspecified, not intractable, without status epilepticus; Z86.73 Personal history of transient ischemic attack (TIA), and cerebral infarction without residual deficits; Y92.121 Bathroom in nursing home as the place of occurrence of the external cause
CPT/HCPCS: 70450; 71101; 72125; 72170; 80048; 85025; 85610; 85730; 93005; 96361; 96374; 96375; 96376; 99285; G0378; J2270; J2405; J7030

== ENCOUNTER 2017-09-30 17:01 | Inpatient (IN) | payer MEDICARE ==
[~2017-09-30] VITALS: Ht 142.2 cm; Wt 51.2 kg
[~2017-09-30 17:01] MED LIST changes: -NIFE60TA8 PO
[2017-09-30 17:14] VITALS: BP 134/71; PULSE 92; RESP 15; TEMP 98.8; O2SAT 98
[2017-09-30] MEDS ORDERED: SODIUM CHLORIDE 0.9% FLUSH 5 ML FLUSH IV FLUSH PRN (17:15)
[2017-09-30] MEDS ORDERED: cefTRIAXone INJ 1,000 MG in SODIUM CHLORIDE 0.9% INJ 100 ML IV ONE (17:15)
[2017-09-30] MEDS ORDERED: SODIUM CHLORID 0.9% 500 ML INJ 500 ML IV ONE (17:15)
--- NOTE | 2017-09-30 17:27 | PD ---
HPI Chief Complaint: Abnormal Results Time Seen by Provider: 17:12 Travel History International Travel<30 days: No Contact w/Intl Traveler<30days: No Traveled to known affect area: No History of Present Illness HPI The patient is 55 years old and arrives from [facility]. She is undergoing physical rehabilitation after a fall with a rib fracture and a toe injury. Over the last couple weeks her renal function has been steadily declining. She is currently undergoing treatment for urinary tract infection. Most recent BUN and creatinine is 40 over 2. She reports pain in the ribs and the foot. She denies fever to me. History was obtained by patient and in conversation with the daughter and with the nurse from the [facility]. [facility] Past Medical History Anemia: Yes (APLASTIC ANEMIA) Arthritis: Yes Asthma: No Atrial Fibrillation: Yes Blood Disorders: No Anxiety: No Depression: No Heart Rhythm Problems: Yes Cancer: No Cardiovascular Problems: Yes High Cholesterol: No Chemotherapy: No Chest Pain: Yes Congestive Heart Failure: No COPD: No Cerebrovascular Accident: Yes Diabetes: No Diminished Hearing: No Endocrine: Yes Gastrointestinal Disorders: Yes GERD: Yes Gout: Yes Genitourinary: Yes (hx of CKD STAGE 4) Headaches: No Hiatal Hernia: No Hypertension: Yes Immune Disorder: No Implanted Vascular Access Dvce: No Kidney Stones: No Musculoskeletal: Yes Neurologic: Yes (hx of seizure, hx cva) Psychiatric: No Reproductive: No Respiratory: No Immunizations Current: Yes Migraines: No Radiation Therapy: No Renal Failure: Yes Seizures: Yes (32 years ago) Sickle Cell Disease: No Sleep Apnea: No Thyroid Disease: Yes (REPORTS PARATHYROID DISEASE) Ulcer: Yes Menopausal: Yes Dilation and Curettage (D&C): Yes Past Surgical History Abdominal Surgery: Yes (APPY) Appendectomy: Yes Cardiac Surgery: No Cholecystectomy: Yes Ear Surgery: No Endocrine Surgery: No Eye Surgery: No Genitourinary Surgery: No Gynecologic Surgery: Yes (D&C) Neurologic Surgery: No Oral Surgery: No Thoracic Surgery: No Other Surgery: Yes Social History Alcohol Use: No Tobacco Use: No Substance Use: No Allergies-Medications (Allergen,Severity, Reaction): Coded Allergies: aspirin (Unverified Allergy, Severe, Anemia, 07/05/17) milk (Verified Allergy, Intermediate, Diarrhea, 09/13/17) penicillin G (Unverified Allergy, Unknown, ALLERGY FROM A YOUNG AGE/ UNKNOWN REACTION, 07/05/17) Reported Meds & Prescriptions Reported Meds & Active Scripts Active Hydrocodone-Acetaminophen 5-325 mg Tab 1 Tab PO Q6H PRN Zyloprim (Allopurinol) 300 Mg Tab 300 Mg PO DAILY Keppra (Levetiracetam) 500 Mg Tab 500 Mg PO Q12HR Mysoline (Primidone) 250 Mg Tab 250 Mg PO DAILY 30 Days Atenolol 25 Mg Tab 25 Mg PO DAILY 30 Days Review of Systems Except as stated in HPI: all other systems reviewed are Neg Physical Exam Narrative GENERAL: The patient is 87 and appears to be uncomfortable SKIN: Focused skin assessment warm/dry. HEAD: Atraumatic. Normocephalic. EYES: Pupils equal and round. No scleral icterus. No injection or drainage. ENT: No nasal bleeding or discharge. Mucous membranes pink and moist. NECK: Trachea midline. No JVD. CARDIOVASCULAR: Regular rate and rhythm. No murmur appreciated. RESPIRATORY: No accessory muscle use. Clear to auscultation. Breath sounds equal bilaterally. GASTROINTESTINAL: Soft. No focus of tenderness. MUSCULOSKELETAL: No obvious deformities. No clubbing. No cyanosis. No edema. NEUROLOGICAL: Awake and alert. No obvious cranial nerve deficits. Motor grossly within normal limits. Normal speech. PSYCHIATRIC: Appropriate mood and affect; insight and judgment normal. Data Data Last Documented VS Vital Signs Date Time Temp Pulse Resp B/P (MAP) Pulse Ox O2 Delivery O2 Flow Rate FiO2 09/30/17 17:14 98.8 92 15 134/71 (92) 98 Nasal Cannula 2.00 Orders Orders Comprehensive Metabolic Panel (09/30/17 17:13) Ecg Monitoring (09/30/17 17:13) Iv Access Insert/Monitor (09/30/17 17:13) Oximetry (09/30/17 17:13) Sodium Chloride 0.9% Flush (Ns Flush) (09/30/17 17:15) Sodium Chlorid 0.9% 500 Ml Inj (Ns 500 M (09/30/17 17:15) Ceftriaxone Inj (Rocephin Inj) (09/30/17 17:15) Acetamin-Hydrocod 325-5 Mg ([place] 5-325 (09/30/17 18:00) Vascular Access Team Consult/P PRN (09/30/17 18:47) Vascular Poc Ultrasound (09/30/17 ) Electrocardiogram (09/30/17 ) Calcium Gluconate Inj (Calcium Gluconate (09/30/17 19:00) Sodium Polysty Sulfate Liq (Kayexalate L (09/30/17 19:00) Admit To Inpatient (09/30/17 ) Vital Signs (Adult) Q4H (09/30/17 19:06) Activity Oob With Assistance (09/30/17 19:06) Sodium Chloride 0.9% Flush (Ns Flush) (09/30/17 19:15) Sodium Chloride 0.9% Flush (Ns Flush) (09/30/17 21:00) Acetaminophen (Tylenol) (09/30/17 19:15) Ondansetron Inj (Zofran Inj) (09/30/17 19:15) Basic Metabolic Panel (Bmp) (10/01/17 06:00) Complete Blood Count With Diff (10/01/17 06:00) Chest, Single Ap (09/30/17 19:06) Pt Request For Service (09/30/17 19:06) Scd Bilateral/Knee High EMILY.BID (09/30/17 19:06) Naloxone Inj (Narcan Inj) (09/30/17 19:15) Magnesium Hydroxide Liq (Milk Of Magnesi (09/30/17 19:15) Inpatient Certification (09/30/17 ) Sodium Chlor 0.9% 1000 Ml Inj (Ns 1000 M (09/30/17 19:15) Allopurinol (Zyloprim) (10/01/17 09:00) Atenolol (Tenormin) (10/01/17 09:00) Levetiracetam (Keppra) (09/30/17 21:00) Primidone (Mysoline) (10/01/17 09:00) Admit Order (Ed Use Only) (09/30/17 ) Vital Signs (Adult) Q4H (09/30/17 19:15) Activity Bed Rest (09/30/17 19:15) Labs Laboratory Tests Test 09/30/17 17:44 Blood Urea Nitrogen 37 MG/DL Creatinine 2.01 MG/DL Random Glucose 97 MG/DL Total Protein 7.6 GM/DL Albumin 3.5 GM/DL Calcium Level 11.6 MG/DL Alkaline Phosphatase 185 U/L Aspartate Amino Transf (AST/SGOT) 31 U/L Alanine Aminotransferase (ALT/SGPT) 15 U/L Total Bilirubin 0.2 MG/DL Sodium Level 136 MEQ/L Potassium Level 5.6 MEQ/L Chloride Level 111 MEQ/L Carbon Dioxide Level 15.1 MEQ/L Anion Gap 10 MEQ/L Estimat Glomerular Filtration Rate 23 ML/MIN Protein Corrected Calcium 11.3 MG/DL MDM Medical Decision Making Medical Screen Exam Complete: Yes Emergency Medical Condition: Yes Medical Record Reviewed: Yes Differential Diagnosis renal failure, urinary tract infection, sepsis, anemia, metabolic disarray Narrative Course CBC & BMP Diagram 09/30/17 17:44 Total Protein 7.6, Albumin 3.5, Calcium Level 11.6 *H, Alkaline Phosphatase 185 H, Aspartate Amino Transf (AST/SGOT) 31, Alanine Aminotransferase (ALT/SGPT) 15 , Total Bilirubin 0.2 Urinalysis noted to be UTI based on it's a paperwork The patient will be admitted for IV hydration and IV antibiotics. Diagnosis Primary Impression: Acute kidney insufficiency Additional Impressions: Dehydration UTI (urinary tract infection) Admitting Information Admitting Physician Requests: Admit Betito Jewell MD Sep 30, 2017 17:26
[2017-09-30] MEDS ORDERED: ACETAMINOPHEN/HYDROcodone 325 MG/5 MG TAB PO ONE (18:00)
[2017-09-30 18:36] LABS: BICARBONATE 15.1 MEQ/L (21.0-32.0); CALCIUM-PROTEIN CORRECTED 11.3 MG/DL (8.5-10.1); TOTAL BILIRUBIN ADULT 0.2 MG/DL (0.2-1.0)
[2017-09-30 18:37] LABS: POTASSIUM 5.6 MEQ/L (3.5-5.1)
[2017-09-30] MEDS ORDERED: CALCIUM GLUCONATE 10% 1 GM/10 ML VIAL SLOW IVP ONE (19:00)
[2017-09-30] MEDS ORDERED: ACETAMINOPHEN 325 MG TAB PO PRN (19:15)
[2017-09-30] MEDS ORDERED: NALOXONE HCL 0.4 MG/ML AMP IV PUSH PRN (19:15)
[2017-09-30] MEDS ORDERED: MAGNESIUM HYDROXIDE SUSP 30 ML CUP PO PRN (19:15)
[2017-09-30] MEDS ORDERED: SODIUM CHLORIDE 0.9% FLUSH 10 ML FLUSH IV FLUSH PRN (19:15)
[2017-09-30] MEDS ORDERED: ONDANSETRON HCL 4 MG/2 ML VIAL IVP PRN (19:15)
--- NOTE | 2017-09-30 19:56 | RADRPT ---
EXAM DATE/TIME: 09/30/2017 19:12 [facility] COMPARISON: CHEST SINGLE AP, September 28, 2015, 14:18. INDICATIONS : Cough MEDICAL HISTORY : AFIB, Hypertension. SURGICAL HISTORY : None. ENCOUNTER: Initial ACUITY: 1 day PAIN SCORE: Non-responsive. LOCATION: Bilateral chest FINDINGS: A single portable frontal view the chest shows the patient's chin and soft tissues obscured the lung apices bilaterally more pronounced on the right. Low lung volumes. No infiltrate or effusion observed . Linear scarring within the right lung base is stable. Chronic interstitial changes within both base s are stable. Heart is normal in size. The scoliotic and degenerative thoracic spine. CONCLUSION: No acute disease. Stable chronic interstitial changes and right basilar scarring. Gonzalo Arias Jr., MD on September 30, 2017 at 19:54 Board Certified Radiologist. This report was verified electronically.
[2017-09-30] MEDS: SODIUM POLYSTYRENE SULFONATE SUSP 15 GM/60 ML CUP PO ONE ×2 (20:18→20:21)
[2017-09-30 20:49] VITALS: BP 129/60; PULSE 96; RESP 18; TEMP 97.7; O2SAT 98
[2017-09-30 21:16] VITALS: PULSE 100
[2017-09-30] MEDS: SODIUM CHLORIDE 0.9% FLUSH 10 ML FLUSH IV FLUSH SCH (21:40)
[2017-09-30] MEDS: levETIRAcetam 500 MG TAB PO SCH (21:45)
[2017-09-30] MEDS: SODIUM CHLOR 0.9% 1000 ML INJ 1,000 ML IV SCH (22:25)
[2017-09-30 22:33] VITALS: O2SAT 98
[2017-10-01] VITALS (7 sets, daily range): BP systolic 145–172; BP diastolic 59–75; PULSE 104–112; RESP 17–20; TEMP 96.2–98.9; O2SAT 97–99
[2017-10-01 07:33] LABS: AUTOMATED NEUTROPHIL # 7.1 TH/MM3 (1.8-7.7); BASOPHIL % 0.2 % (0.0-2.0); EOSINOPHIL # 0.6 TH/MM3 (0-0.4); EOSINOPHIL % 7.2 % (0.0-4.0); HEMATOCRIT 29.1 % (35.0-46.0); HEMO FLAGS DIFF FINAL; LYMPH % 7.5 % (9.0-44.0); LYMPHOCYTE # 0.7 TH/MM3 (1.0-4.8); MEAN CELL VOLUME 109.2 FL (80.0-100.0); MEAN CORPUSCULAR HEMOGLOBIN 34.9 PG (27.0-34.0); MEAN CORPUSCULAR HGB CONC 31.9 % (32.0-36.0); MONO % 6.3 % (0.0-8.0); NEUT % 78.8 % (16.0-70.0); PLATELET COUNT 222 TH/MM3 (150-450); RED BLOOD COUNT 2.66 MIL/MM3 (4.00-5.30); RED CELL DISTRIBUTION WIDTH 16.5 % (11.6-17.2)
[2017-10-01 08:09] LABS: BICARBONATE 12.2 MEQ/L (21.0-32.0); POTASSIUM 5.2 MEQ/L (3.5-5.1)
--- NOTE | 2017-10-01 09:30 | HHI.HP ---
HPI Service [facility] Hospitalists Primary Care Physician Norman Moctezuma D.O. Admission Diagnosis Dehydration, TOD, Poss UTI Chief Complaint: worsening renal function per labs from SNF Travel History International Travel<30 Days: No Contact w/Intl Traveler <30 Da: No Traveled to Known Affected Are: No History of Present Illness This is an 87 year old female patient with a past medical history which includes gout, aplastic anemia, CKD III, prior intracerebral hemorrhage, seizure disorder and paroxysmal atrial fibrillation. Patient was recently hospitalized [facility] 09/07/17 through 09/10/17 for generalized weakness, falls and dislocation of her left great toe. Patient was found to have generalized weakness, and subsequently [facility]. She then returned to the Hospital on 09/13/17 after another fall patient was evaluated found to have sustained fractured ribs was again discharged back to SNF. Over the past 2-3 weeks it has been noted that patient has had a steady declining in her renal function so she was seen to the ER for further evaluation and treatment. Patient has also been receiving treatment for an UTI at the SNF. Patient appears debilitated and able to provide only minimal information. Information gathered from patient as well as prior charting. Review of Systems ROS Limitations: Clinical Condition, Poor Historian Past Family Social History Past Medical History 1. Gout. 2. Aplastic anemia. 3. CKD III. 4. She has had prior intracerebral hemorrhage. 5. Seizure disorder. 6. Paroxysmal atrial fibrillation. Past Surgical History 1. Appendectomy. 2. Cholecystectomy. Reported Medications Hydrocodone-Acetaminophen 5-325 mg Tab 1 Tab PO Q6H PRN Zyloprim (Allopurinol) 300 Mg Tab 300 Mg PO DAILY Keppra (Levetiracetam) 500 Mg Tab 500 Mg PO Q12HR Mysoline (Primidone) 250 Mg Tab 250 Mg PO DAILY 30 Days Atenolol 25 Mg Tab 25 Mg PO DAILY 30 Days Allergies: Coded Allergies: aspirin (Unverified Allergy, Severe, Anemia, 07/05/17) milk (Verified Allergy, Intermediate, Diarrhea, 09/13/17) penicillin G (Unverified Allergy, Unknown, ALLERGY FROM A YOUNG AGE/ UNKNOWN REACTION, 07/05/17) Active Ordered Medications Current Medications Medications (Trade) Dose Ordered Sig/Oly Route Start Time Stop Time Status Last Admin (NS Flush) 2 ml UNSCH PRN IV FLUSH 09/30/17 17:15 (NS Flush) 2 ml UNSCH PRN IV FLUSH 09/30/17 19:15 (NS Flush) 2 ml BID IV FLUSH 09/30/17 21:00 (Tylenol) 650 mg Q4H PRN PO 09/30/17 19:15 (Zofran Inj) 4 mg Q6H PRN IVP 09/30/17 19:15 (Narcan Inj) 0.4 mg UNSCH PRN IV PUSH 09/30/17 19:15 (Milk Of [place]) 30 ml Q12H PRN PO 09/30/17 19:15 Sodium Chloride 1,000 ml @ 75 mls/hr [id number] IV 09/30/17 19:15 09/30/17 22:25 (Zyloprim) 300 mg DAILY PO 10/01/17 09:00 (Tenormin) 25 mg DAILY PO 10/01/17 09:00 (Keppra) 500 mg Q12HR PO 09/30/17 21:00 (Mysoline) 250 mg DAILY PO 10/01/17 09:00 Family History Noncontributory Social History She is for 3 years now, her from Alzheimer's. She has children in the vicinity. Patient has been living in SNF for rehabilitation since 08/2017. No report of ETOH use tobacco use or illicit drug use Physical Exam Vital Signs Vital Signs Date Time Temp Pulse Resp B/P (MAP) Pulse Ox O2 Delivery O2 Flow Rate FiO2 10/01/17 00:54 96.2 104 18 161/59 (93) 98 10/01/17 00:36 Nasal Cannula 3.00 09/30/17 21:16 100 09/30/17 20:49 97.7 96 18 129/60 (83) 98 09/30/17 17:14 98.8 92 15 134/71 (92) 98 Nasal Cannula 2.00 Physical Exam GENERAL: This is an elderly debilitated 87 year old female patient SKIN: generalized thinning of skin HEAD: Atraumatic. Normocephalic. No temporal or scalp tenderness. EYES: Extraocular motions intact. No scleral icterus. No injection or drainage. CARDIOVASCULAR: Regular rhythm mildly tachycardic RESPIRATORY: Clear to auscultation. Breath sounds equal bilaterally. GASTROINTESTINAL: Abdomen soft, non-tender, nondistended. MUSCULOSKELETAL: Extremities without clubbing, cyanosis, or edema. No joint tenderness, effusion, or edema noted. No calf tenderness. Negative Homans sign bilaterally. NEUROLOGICAL: Awake and alert. No focal deficits. 3-4 out of 5 muscle strength in all muscle groups. slurred speech. Laboratory Laboratory Tests Test 09/30/17 17:44 10/01/17 06:40 Blood Urea Nitrogen 37 31 Creatinine 2.01 1.50 Random Glucose 97 68 Total Protein 7.6 Albumin 3.5 Calcium Level 11.6 10.2 Alkaline Phosphatase 185 Aspartate Amino Transf (AST/SGOT) 31 Alanine Aminotransferase (ALT/SGPT) 15 Total Bilirubin 0.2 Sodium Level 136 141 Potassium Level 5.6 5.2 Chloride Level 111 119 Carbon Dioxide Level 15.1 12.2 Anion Gap 10 10 Estimat Glomerular Filtration Rate 23 33 Protein Corrected Calcium 11.3 White Blood Count 9.0 Red Blood Count 2.66 Hemoglobin 9.3 Hematocrit 29.1 Mean Corpuscular Volume 109.2 Mean Corpuscular Hemoglobin 34.9 Mean Corpuscular Hemoglobin Concent 31.9 Red Cell Distribution Width 16.5 Platelet Count 222 Mean Platelet Volume 9.3 Neutrophils (%) (Auto) 78.8 Lymphocytes (%) (Auto) 7.5 Monocytes (%) (Auto) 6.3 Eosinophils (%) (Auto) 7.2 Basophils (%) (Auto) 0.2 Neutrophils # (Auto) 7.1 Lymphocytes # (Auto) 0.7 Monocytes # (Auto) 0.6 Eosinophils # (Auto) 0.6 Basophils # (Auto) 0.0 CBC Comment DIFF FINAL Differential Comment Result Diagram: 10/01/17 0640 10/01/17 0640 Imaging Last Impressions Chest X-Ray 09/30/17 190 Signed Impressions: Service Date/Time: Saturday, September 30, 2017 19:12 - CONCLUSION: No acute disease. Stable chronic interstitial changes and right basilar scarring. MD David Raines Jr. VTE Risk Assessment Caprini VTE Risk Assessment: Mod/High Risk (score >= 2) Caprini Risk Assessment Model Point Value = 1 Point Value = 2 Point Value = 3 Point Value = 5 Age 41-60 Minor surgery BMI > 25 kg/m2 Swollen legs Varicose veins or History of unexplained or recurrent spontaneous Oral contraceptives or hormone replacement Sepsis (< 1 month) Serious lung disease, including pneumonia (< 1 month) Abnormal pulmonary function Acute myocardial infarction Congestive heart failure (< 1 month) History of inflammatory bowel disease Medical patient at bed rest Age 61-74 Arthroscopic surgery Major open surgery (> 45 min) Laparoscopic surgery (> 45 min) Malignancy Confined to bed (> 72 hours) Immobilizing plaster cast Central venous access Age >= 75 History of VTE Family history of VTE Factor V Leiden Prothrombin [id number] Lupus anticoagulant Anticardiolipin antibodies Elevated serum homocysteine Heparin-induced thrombocytopenia Other congenital or acquired thrombophilia Stroke (< 1 month) Elective arthroplasty Hip, pelvis, or leg fracture Acute spinal cord injury (< 1 month) Prophylaxis Regimen Total Risk Factor Score Risk Level Prophylaxis Regimen 0-1 Low Early ambulation 2 Moderate Order ONE of the following: *Sequential Compression Device (SCD) *Heparin 5000 units SQ BID 3-4 Higher Order ONE of the following medications: *Heparin 5000 units SQ TID *Enoxaparin/Lovenox 40 mg SQ daily (WT < 150 kg, CrCl > 30 mL/min) *Enoxaparin/Lovenox 30 mg SQ daily (WT < 150 kg, CrCl > 10-29 mL/min) *Enoxaparin/Lovenox 30 mg SQ BID (WT < 150 kg, CrCl > 30 mL/min) AND/OR *Sequential Compression Device (SCD) 5 or more Highest Order ONE of the following medications: *Heparin 5000 units SQ TID (Preferred with Epidurals) *Enoxaparin/Lovenox 40 mg SQ daily (WT < 150 kg, CrCl > 30 mL/min) *Enoxaparin/Lovenox 30 mg SQ daily (WT < 150 kg, CrCl > 10-29 mL/min) *Enoxaparin/Lovenox 30 mg SQ BID (WT < 150 kg, CrCl > 30 mL/min) AND *Sequential Compression Device (SCD) Assessment and Plan Problem List: (1) Acute kidney injury superimposed on CKD ICD Codes: N17.9 - Acute kidney failure, unspecified; N18.9 - Chronic kidney disease, unspecified Plan: TOD on CKD Dehydration BUN on admission 37 creatinine on admission 2.01 GFR on admission 23 improve with IV hydration over night, 10/01 BUN 31, creatinine 1.50 and GFR 33 will continue IV hydration N at 75 ml/H for now recheck labs in AM Family not currently at bedside. Family meeting arranged for tomorrow at 11 AM to discuss current status and goals of care. Patient appears to be a candidate for hospice DVT prophylaxis with SCDs Code status patient has [place] DNR (2) Dehydration ICD Codes: E86.0 - Dehydration Status: Acute Plan: see above (3) UTI (urinary tract infection) ICD Codes: N39.0 - Urinary tract infection, site not specified Status: Acute Plan: UTI records reviewed UA C&S from 09/25/17 revealed MRSA sensitive to Nitrofurantoin, Linezolid, tetracycline, Tigecycline and vancomycin start nitrofurantoin for now repeat UA C&S ordered awaiting results patient received Rocephin the ER 09/30/17 will await UA results to determine further treatment of UTI (4) Rib fractures ICD Codes: S22.39XA - Fracture of one rib, unspecified side, initial encounter for closed fracture Status: Acute Plan: Rib fractures 09/13/17 There is no surgical repair for rib fractures incentive spirometer Continue Tylenol as needed for pain Continue [place] as needed for severe pain continue aggressive physical therapy and mobilization is in patient's best interest (5) HTN (hypertension), benign ICD Codes: I10 - HTN (hypertension), benign Status: Chronic Plan: HTN (hypertension), benign Continue atenolol Maintain low-sodium diet monitor BP trend (6) Hyperkalemia ICD Codes: E87.5 - Hyperkalemia Status: Acute Plan: 5.6 on admission -> (10/01) 5.2 recheck in AM (7) Seizure ICD Codes: R56.9 - Seizure Status: Acute Plan: Seizure disorder Stable Continue Keppra and Primidone (8) Macrocytic anemia ICD Codes: D53.9 - Nutritional anemia, unspecified Status: Acute Plan: 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 Shi as an outpatient Assessment and Plan Patient examined. Assessment and plan formulated with Geeta WELDON I agree with the above. Physician Certification 2 Midnight Certification Type: Admission for Inpatient Services Order for Inpatient Services The services are ordered in accordance with Medicare regulations or non- Medicare payer requirements, as applicable. In the case of services not specified as inpatient-only, they are appropriately provided as inpatient services in accordance with the 2-midnight benchmark. Estimated LOS (days): 2 days is the estimated time the patient will need to remain in the hospital, assuming treatment plan goals are met and no additional complications. Post-Hospital Plan: Not yet determined Problem Qualifiers (1) UTI (urinary tract infection): Geeta Fortune Oct 01, 2017 09:30 Arvind Cai DO Oct 02, 2017 12:20
[2017-10-01] MEDS: levETIRAcetam 500 MG TAB PO SCH ×2 (10:51→20:39)
[2017-10-01] MEDS: PRIMIDONE 250 MG TAB PO SCH (10:51)
[2017-10-01] MEDS: SODIUM CHLORIDE 0.9% FLUSH 10 ML FLUSH IV FLUSH SCH ×2 (10:51→20:39)
[2017-10-01] MEDS: ATENOLOL 25 MG TAB PO SCH (10:51)
[2017-10-01] MEDS: ALLOPURINOL 300 MG TAB PO SCH (10:51)
[2017-10-01] MEDS: SODIUM CHLOR 0.9% 1000 ML INJ 1,000 ML IV SCH ×2 (10:52→21:55)
--- NOTE | 2017-10-01 12:13 | EKG ---
Date Performed: 09/30/2017 Time Performed: 19:38:27 PTAGE: 87 years EKG: Sinus rhythm BORDERLINE LEFT AXIS DEVIATION Borderline first degree AV block BORDERLINE ECG PREVIOUS TRACING : 09/13/2017 04.07 Compared to prior tracing no significant change DOCTOR: Santana Herrera Interpretating Date/Time 10/01/2017 12:12:14
[2017-10-01] MEDS ORDERED: diphenhydrAMINE HCL 50 MG/ML VIAL IV PUSH PRN (16:15)
[2017-10-01] MEDS ORDERED: LORazepam 2 MG/ML VIAL IV PUSH PRN (16:15)
[2017-10-01] MEDS ORDERED: cloNIDine HCL 0.1 MG TAB PO PRN (17:45)
[2017-10-01] MEDS: NITROFURANTOIN MONOHYD MACROCR 100 MG CAP PO SCH (18:39)
[2017-10-02] MEDS: SODIUM CHLOR 0.9% 1000 ML INJ 1,000 ML IV SCH (02:33)
[2017-10-02 07:06] LABS: BICARBONATE 13.6 MEQ/L (21.0-32.0); POTASSIUM 5.7 MEQ/L (3.5-5.1)
[2017-10-02 08:00] VITALS: BP 152/85; PULSE 112; RESP 22; TEMP 97.1; O2SAT 98
[2017-10-02] MEDS: levETIRAcetam 500 MG TAB PO SCH (08:13)
[2017-10-02] MEDS: ATENOLOL 25 MG TAB PO SCH (08:13)
[2017-10-02] MEDS: ALLOPURINOL 300 MG TAB PO SCH (08:13)
[2017-10-02] MEDS: NITROFURANTOIN MONOHYD MACROCR 100 MG CAP PO SCH (08:13)
[2017-10-02] MEDS: PRIMIDONE 250 MG TAB PO SCH (08:13)
[2017-10-02] MEDS: SODIUM CHLORIDE 0.9% FLUSH 10 ML FLUSH IV FLUSH SCH (08:18)
[2017-10-02] MEDS ORDERED: SODIUM POLYSTYRENE SULFONATE SUSP 15 GM/60 ML CUP PO ONE (10:15)
[2017-10-02 12:00] VITALS: BP 123/77; PULSE 108; RESP 18; TEMP 97.5; O2SAT 97
--- NOTE | 2017-10-02 12:23 | HHI.PR ---
Subjective Remarks No new complaints. Pt's PO intake is poor. Objective Vitals Vital Signs Date Time Temp Pulse Resp B/P (MAP) Pulse Ox O2 Delivery O2 Flow Rate FiO2 10/02/17 08:00 97.1 112 22 152/85 (107) 98 10/02/17 00:00 Room Air 10/01/17 23:34 97.3 110 20 151/74 (99) 98 10/01/17 20:05 98.9 110 17 153/63 (93) 98 10/01/17 16:00 97.4 105 20 172/64 (100) 97 10/01/17 14:19 97 21 Result Diagram: 10/01/17 0640 10/02/17 0605 Imaging Last Impressions Chest X-Ray 09/30/17 1906 Signed Impressions: Service Date/Time: Tuesday, September 30, 2017 19:12 - CONCLUSION: No acute disease. Stable chronic interstitial changes and right basilar scarring. Gonzalo Arias Jr., MD Objective Remarks GENERAL: NAD CARDIOVASCULAR: Regular rate and rhythm without murmurs, gallops, or rubs. RESPIRATORY: Clear to auscultation. Breath sounds equal bilaterally. No wheezes , rales, or rhonchi. GASTROINTESTINAL: Abdomen soft, non-tender, nondistended. Normal active bowel sounds MUSCULOSKELETAL: Extremities without clubbing, cyanosis, or edema. NEURO: opens eyes to voice, speaking only a few words this AM, EDUARDO A/P Problem List: (1) Acute kidney injury superimposed on CKD ICD Codes: N17.9 - Acute kidney failure, unspecified; N18.9 - Chronic kidney disease, unspecified Plan: TOD on CKD Dehydration - pt is actively dying - Case d/w pt's [employer] Dipper, Dr. Shi today (10/02/17) - family requests hospice - stop IVFs - ativan prn anxiety - morphine IV prn pain - comfort care - Hospice will meet with family this afternoon - anticipate discharge this afternoon/evening to the hospice care center Arvind Cai DO Oct 02, 2017 12:23
[2017-10-02] MEDS ORDERED: MORPHINE SULFATE 2 MG/ML INJ IV PUSH PRN (12:30)
[2017-10-02] MEDS ORDERED: LORazepam INJ IV PUSH (12:34)
[2017-10-02] MEDS ORDERED: MORP10IN9 IV PUSH (12:34)
--- NOTE | 2017-10-02 12:36 | HHI.DCPOC ---
Discharge Care Plan Diagnosis: (1) CKD (chronic kidney disease) stage 4, GFR 15-29 ml/min (2) Aplastic anemia (3) HTN (hypertension), benign Goals to Promote Your Health * To prevent worsening of your condition and complications * To maintain your health at the optimal level Directions to Meet Your Goals Take your medications as prescribed Follow your dietary instruction Follow activity as directed Keep your appointments as scheduled Take your immunizations and boosters as scheduled If your symptoms worsen call your PCP, if no PCP go to Urgent Care Center or Emergency Room Smoking is Dangerous to Your Health. Avoid second hand smoke Call the 24-hour hour crisis hotline for domestic abuse at Arvind Cai DO Oct 02, 2017 12:35
== END 2017-10-02 17:23 | disposition hospice, inpatient (51) | DRG 683 ==
LOC: NEPE 17:01 → NEDA 19:17 → N06B 20:26 → N06A 10-01 19:21
PROVIDERS: ADMIT Hospitalist; ATTEND Hospitalist
DX: N17.9 Acute kidney failure, unspecified (principal); N39.0 Urinary tract infection, site not specified; D61.9 Aplastic anemia, unspecified; I48.0 Paroxysmal atrial fibrillation; E87.5 Hyperkalemia; E86.0 Dehydration; I12.9 Hypertensive chronic kidney disease with stage 1 through stage 4 chronic kidney disease, or unspecified chronic kidney disease; M10.9 Gout, unspecified; D46.9 Myelodysplastic syndrome, unspecified; D53.9 Nutritional anemia, unspecified; G40.909 Epilepsy, unspecified, not intractable, without status epilepticus; K21.9 Gastro-esophageal reflux disease without esophagitis; M19.90 Unspecified osteoarthritis, unspecified site; Z86.73 Personal history of transient ischemic attack (TIA), and cerebral infarction without residual deficits; S22.39XD Fracture of one rib, unspecified side, subsequent encounter for fracture with routine healing; N18.4 Chronic kidney disease, stage 4 (severe); X58.XXXD Exposure to other specified factors, subsequent encounter; Z51.5 Encounter for palliative care; Z66 Do not resuscitate; D63.8 Anemia in other chronic diseases classified elsewhere
CPT/HCPCS: 71010; 76937; 80048; 80053; 85025; 93005; 94150; J0610; J0696; J7030; J7040